=== PATIENT | female | born 1990 | race American Indian/Alaskan Native ===

== ENCOUNTER 2017-01-29 17:14 | Emergency (ER) | payer MEDICAID ==
[2016-12-15 14:15] VITALS: BMI 27.3
--- NOTE | 2017-01-29 19:56 | OBHP ---
Datetime: 01/29/2017 18:00 IP Adm Impression: , intrauterine ; No Active Labor; Intact Membranes IP Chief Complaint Other: RLQ pain IP Admit Plan: Observation/Evaluation; Discharge home Admit Comment, IP Provider: 26 yr at 22w5d GA presents to [facility] with complaint of RLQ pain, s harp, intermittent q10 min, which began this morning. Also with complaint of new onset pain on sole o f feet, sensitive to touch. + movements, denies ctx's/LOF/vaginal bleeding/headaches/visual marielos nges/n/v/swelling of hands or feet. Patient reports having a recent appendectomy at [facility] on 12/16/16. She goes for PNC at [facility], her last visit was 01/27/17 and she was instructed to take tylenol for the lo wer back pain which she reported then. Her last US 01/20/17: good tone and movements. Irma solis reports PMHx of Cervical Disc Herniation, Fibromyalgia and Anxiety. She stopped taking Gapapentin at 8 wks GA. Her next appointment with [facility] in friday02/04/17, her next clinic appt is on 02/24/17. Janice elliott is tolerating PO diet, had a normal bowel movement this AM, having normal urine output. care/course: Open Appendectomy at 16 wks GA (12/16/16); BV treated in 1st trimester, , rec urrent vaginal bleeding in first trimester, 2nd tri labs: Gc/Ch neg/neg, HepBsAg neg, HIV neg, Rh Pos , RPR neg, Rubella Immune OBHx: 1x at 36wks GA for PROM and failure to progress, 1x TOP PMHx: Cervical Disc Herniation, Fibromyalgia, Anxiety PSurgHx: Appendectomy (recent 12/16/16) SocHx: denies smoking/drugs/Etoh Allergies: NKDA Meds: PNV PE: VSS, DTR's 2+ throughout HEENT: normal Cardiac: S1 S2 normal, no murmurs/rubs or gallops. Lungs: CTABL Abd: gravid, nontender, RLQ surgical scar, Ext: no edema monitoring: FHR 120 bpm A: -discharge to home -[facility] appt tomorrow -follow up with Obgyn at [facility] in 1 week -adequate hydration and PO intake Samantha Townsend M.D PGY-1 The patient was seen and examined with resident I agree with the patient was observed for several hours symptoms improved patient was advised to follow-upat the [facility] in one week . Patient was advised she would have any vaginal bleeding or cramping she return L broken Medical Lisette ter Extremities - PN: Normal Abdomen - PN: Normal Back - PN: Normal Lungs - PN: Normal Heart - PN: Normal Neurologic - PN: Normal HEENT - PN: Normal General - PN: Normal FHR - Baseline A Provider: 120 Gestation - Est Wks by US: 22.5 EGA AdmitDate IP: 22.5 Vital Signs Provider: Reviewed; Within Normal Limits IP Chief Complaint: Maternal discomfort NICHD Decel Fetus A IP Provider: None DTRs - PN: Normal
== END 2017-01-29 19:35 | disposition home or self-care (01) ==
LOC: H.EROB2 17:14
DX: O47.02 False labor before 37 completed weeks of gestation, second trimester (principal); Z3A.22 22 weeks gestation of pregnancy; Z87.59 Personal history of other complications of pregnancy, childbirth and the puerperium; O20.9 Hemorrhage in early pregnancy, unspecified

== ENCOUNTER 2017-03-03 14:52 | Emergency (ER) | payer MEDICAID ==
[2017-03-03 16:03] VITALS: BMI 30.6
[2017-03-03 17:02] LABS: RBC URINE 4 /hpf (0-3); URINE BACTERIA OCC (<OCC); URINE BILIRUBIN NEGATIVE (NEGATIVE); URINE BLOOD MODERATE (NEGATIVE); URINE COLOR YELLOW (YELLOW); URINE GLUCOSE (UA) NEG (Normal); URINE KETONE NEGATIVE (NEGATIVE); URINE LEUKOCYTE ESTERASE LARGE Leu/uL (Negative); URINE PROTEIN NEGATIVE (NEGATIVE); URINE UROBILINOGEN 0.2-1.0 mg/dL (0.2-1.0); WBC URINE 11 /hpf (0-5)
--- NOTE | 2017-03-03 23:03 | OBHP ---
Datetime: 03/03/2017 15:50 IP Adm Impression: , intrauterine IP Admit Plan: Observation/Evaluation Admit Comment, IP Provider: 26yo edc 05/30 by 8wk us and lmp presents to [facility] w/ c/o increase d pelvic pressure assoc with crmps to the left of midline in pelvis and harper along coccyx. She denie s ctxs, vag bleeding, vag d/c, srom, coitus in past 4days or decreased fm. pmhx: fibromyalgia pshx: appy 12/06 obhx: EAB x1; CD nkda medic: pnv shx: denies etoh, drgs or tobacco I: 27.3wk pelvic pressure p: u/a addendum: I: uti/ vag candidiasis p: d/c home rx augmentin rx monistat ptl precaut f/u in 1wk w/ ob Pelvic Type - PN: Adequate Extremities - PN: Normal Abdomen - PN: Normal Back - PN: Normal Lungs - PN: Normal Heart - PN: Normal Neurologic - PN: Normal HEENT - PN: Normal General - PN: Normal FHR - Baseline A Provider: 150 Membranes, Provider: Intact Contraction Comments Provider: no Comments, ACOG Physical Exam: u/a +wbc,rbc, yeast, large LE, +bact SSE: yellow thick d/c EGA AdmitDate IP: 27.3 Vital Signs Provider: Within Normal Limits IP Chief Complaint: Maternal discomfort NICHD Variability Prov Fetus A: Marked >25bpm NICHD Accel Fetus A IP Provider: 10X10 FHR Category Provider Fetus A: Category I NICHD Decel Fetus A IP Provider: None Dilatation, Provider: 0 Effacement, Provider: 0 Station, Provider: -4 Genitourinary Exam: Normal
== END 2017-03-03 17:30 | disposition home or self-care (01) ==
LOC: H.EROB2 14:52
DX: O23.42 Unspecified infection of urinary tract in pregnancy, second trimester (principal); O26.92 Pregnancy related conditions, unspecified, second trimester; B37.3 Candidiasis of vulva and vagina; Z3A.27 27 weeks gestation of pregnancy

== ENCOUNTER 2017-03-30 23:00 | Emergency (ER) | payer MEDICAID ==
[2017-03-30 23:32] VITALS: BMI 30.9
[2017-03-30] MEDS ORDERED: Lactated Ringer's 1,000 ML IV SCH (23:45)
[2017-03-31 01:06] LABS: HEMATOCRIT 35.4 % (34.0-47.0); MEAN CELL VOLUME 93.4 fl (81.0-99.0); MEAN CORPUSCULAR HEMOGLOBIN 30.6 pg (27.0-31.0); MEAN CORPUSCULAR HGB CONC 32.7 g/dL (33.0-37.0); RED CELL DISTRIBUTION WIDTH 13.4 % (11.5-14.5)
[2017-03-31 01:12] LABS: RBC URINE 4 /hpf (0-3); URINE BACTERIA RARE (<OCC); URINE BILIRUBIN NEGATIVE (NEGATIVE); URINE BLOOD SMALL (NEGATIVE); URINE COLOR YELLOW (YELLOW); URINE GLUCOSE (UA) NEG (Normal); URINE KETONE NEGATIVE (NEGATIVE); URINE LEUKOCYTE ESTERASE NEG Leu/uL (Negative); URINE PROTEIN NEGATIVE (NEGATIVE); URINE UROBILINOGEN 0.2-1.0 mg/dL (0.2-1.0); WBC URINE 3 /hpf (0-5)
== END 2017-03-31 01:55 | disposition home or self-care (01) ==
LOC: H.EROB2 23:00
DX: O47.03 False labor before 37 completed weeks of gestation, third trimester (principal); Z3A.31 31 weeks gestation of pregnancy; Z86.69 Personal history of other diseases of the nervous system and sense organs

== ENCOUNTER 2017-04-16 10:12 | Inpatient (IN) | payer MEDICAID ==
[2017-04-16 10:43] VITALS: BMI 31.5
[2017-04-16] MEDS: Lactated Ringer's 1,000 ML IV SCH ×7 (11:15→17:36)
[2017-04-16 14:18] LABS: SQUAMOUS EPITHIAL 8 /hpf (0-5); URINE BACTERIA MOD (<OCC); URINE BILIRUBIN NEGATIVE (NEGATIVE); URINE BLOOD SMALL (NEGATIVE); URINE CLARITY CLOUDY (Clear); URINE COLOR YELLOW (YELLOW); URINE GLUCOSE (UA) NEG (Normal); URINE LEUKOCYTE ESTERASE SMALL Leu/uL (Negative); URINE NITRATE NEGATIVE (NEGATIVE); URINE PROTEIN NEGATIVE (NEGATIVE); URINE UROBILINOGEN 0.2-1.0 mg/dL (0.2-1.0)
[2017-04-16 14:26] LABS: ALB/GLOB RATIO 1.1 (1.0-2.1); ALBUMIN 3.6 g/dL (3.5-5.0); ALT/SGPT 24 U/L (9-52); AST/SGOT 27 U/L (14-36); BLOOD UREA NITROGEN 6 mg/dl (7-17); CALCIUM 9.1 mg/dL (8.4-10.2); GFR AFRICAN-AMERICAN > 60; GFR NON-AFRICAN AMERICAN > 60
[2017-04-16 14:32] LABS: BASO # 0.1 K/uL (0.0-0.2); BASO % 0.6 % (0.0-2.0); EOS # 0.3 K/uL (0.0-0.7); EOS % 2.8 % (0.0-4.0); HEMOGLOBIN 11.8 g/dL (12.0-16.0); LYMPH # 1.7 K/uL (1.0-4.3); LYMPH % 17.1 % (20.0-40.0); MEAN CELL VOLUME 93.5 fl (81.0-99.0); MEAN CORPUSCULAR HEMOGLOBIN 30.6 pg (27.0-31.0); MEAN CORPUSCULAR HGB CONC 32.7 g/dL (33.0-37.0); MEAN PLATELET VOLUME 9.1 fl (7.2-11.7); MONO % 10.6 % (0.0-10.0); NEUT # 6.8 K/uL (1.8-7.0); NEUT % 68.9 % (50.0-75.0); NRBC % 0.3 % (0.0-0.0); RBC 3.86 Mil/uL (3.80-5.20); RED CELL DISTRIBUTION WIDTH 13.1 % (11.5-14.5); WHITE BLOOD COUNT 9.9 K/uL (4.8-10.8)
[2017-04-16] MEDS ORDERED: Betamethasone Soluspan 30 mg/5mL Inj Susp IM ONE (17:08)
[2017-04-16] MEDS ORDERED: Magnesium Sul 40GM/1L SW 40 GM/1,000 ML ML IV ONE (17:09)
[2017-04-16 17:17] VITALS: BP 114/73; PULSE 110; RESP 14; TEMP 98
[2017-04-16] MEDS ORDERED: Magnesium Sulfate 4 gm/100 ml 4 GM/100 ML BAG IV ONE ×2 (17:29→17:34)
[2017-04-17] MEDS: Lactated Ringer's 1,000 ML IV SCH ×2 (05:47→18:50)
[2017-04-17] MEDS ORDERED: Magnesium Sul 40GM/1L SW 40 GM/1,000 ML ML IV ONE (10:18)
[2017-04-17] MEDS: Magnesium Sul 40GM/1L SW 40 GM/1,000 ML ML IV ONE (13:00)
[2017-04-17] MEDS ORDERED: Betamethasone Soluspan 30 mg/5mL Inj Susp IM ONE (18:00)
[2017-04-18] MEDS: Magnesium Sul 40GM/1L SW 40 GM/1,000 ML ML IV ONE (09:15)
[2017-04-18 14:37] LABS: SQUAMOUS EPITHIAL 2 /hpf (0-5); URINE AMORPHOUS SEDIMENT RARE /ul (<OCC); URINE BILIRUBIN NEGATIVE (NEGATIVE); URINE BLOOD SMALL (NEGATIVE); URINE CLARITY CLEAR (Clear); URINE COLOR STRAW (YELLOW); URINE GLUCOSE (UA) NEG (Normal); URINE LEUKOCYTE ESTERASE NEG Leu/uL (Negative); URINE NITRATE NEGATIVE (NEGATIVE); URINE PROTEIN NEGATIVE (NEGATIVE); URINE UROBILINOGEN 0.2-1.0 mg/dL (0.2-1.0)
[2017-04-18] MEDS: Lactated Ringer's 1,000 ML IV SCH (18:47)
--- NOTE | 2017-04-18 19:10 | OBPN ---
Datetime: 04/18/2017 05:41 IP Progress Impression: Normal progression of labor IP Progress Plan: Continue present management IP Progress Note Comment: S: patient lying in bed w/ comfortably. O: 98.2 F, 121/63 mmHg, 104 bpm, FHR 135, moderate variability SVE: membranes intact meds: 1st dose betamethasone @18:02 04/16, mag 4gm IV, tylenol 650 mg PO once A: IUP @ 33.6 wks w/ CTX and lower abdominal pain P: FHT reactive, no decels - continue w/ present management Ace Walters M.D. Stamping Die Maker Bench PGY-1 Vital Signs Provider: Reviewed Datetime: 04/16/2017 11:06 Membranes, Provider: Intact FHR - Baseline A Provider: 140s Presentation-Admit: Vertex NICHD Accel Fetus A IP Provider: 15X15 FHR Category Provider Fetus A: Category I NICHD Variability Prov Fetus A: Moderate 6-25bpm Dilatation, Provider: closed Effacement, Provider: thick Station, Provider: high NICHD Decel Fetus A IP Provider: None Datetime: 03/03/2017 15:50 Contraction Comments Provider: no Datetime: 01/29/2017 18:00 Gestation - Est Wks by US: 22.5
--- NOTE | 2017-04-18 19:32 | OBPN ---
Datetime: 04/18/2017 19:11 IP Progress Impression Other: contractions IP Informed Consent Obtain: Section Delivery; Risks, Benefits and Alternatives Discussed IP Procedures: Sterile Vag Exam IP Progress Plan: Deliver- Section Membranes, Provider: Intact Contraction Comments Provider: irritabilty FHR - Baseline A Provider: 140 IP Progress Note Comment: 26 yo at 34 wks w/ cramping pain in lower abdomen and back, s/p be tamethasone course, last dose at 6 pm last night Case discussed w/ Dr. Goodrich and it was recommended that the IV magnesium be stopped and to del iver her if she still has pain. Pt still w/ crampy pain. Will proceed w/ delivery NICHD Variability Prov Fetus A: Moderate 6-25bpm Dilatation, Provider: 0 Effacement, Provider: 0 Station, Provider: -3 NICHD Decel Fetus A IP Provider: None
[2017-04-19] MEDS: Lactated Ringer's 1,000 ML IV SCH (02:48)
--- NOTE | 2017-04-19 20:14 | US ---
PROCEDURE: HISTORY: threatened ptl COMPARISON: 12/16/2016 TECHNIQUE: FINDINGS: biophysical profile score is 8 out of 8. Cervical length is 2.7 centimeters. Estimated gestational age is 33 weeks +/-2 weeks. Amniotic fluid index is 17 centimeters. anatomic survey was not performed. Assessment is limited by late gestational age. IMPRESSION: As above.
--- NOTE | 2017-04-20 10:31 | OBPN ---
Datetime: 04/20/2017 10:13 IP Progress Impression Other: contractions IP Procedures: Sterile Vag Exam IP Progress Plan: Continue present management Membranes, Provider: Intact Contraction Comments Provider: irritability FHR - Baseline A Provider: 150 IP Progress Note Comment: 26 yo at 34+2 wks w/ PT ctxns, maternal discomfort Case discussed w/ Drs. Dejesus and [place] (geospatial program management officer) and it was decided to observe for now d/t risks of prematurity 04/19/2017 BPP 8/8, [place] 17, EGA 33 wks Cervix is unchanged. Pt is not in labor. Will continue to observe for now NICHD Accel Fetus A IP Provider: 15X15 FHR Category Provider Fetus A: Category I NICHD Variability Prov Fetus A: Moderate 6-25bpm Dilatation, Provider: 0 Effacement, Provider: 0 Station, Provider: -3 NICHD Decel Fetus A IP Provider: None Datetime: 04/19/2017 11:37 Presentation-Admit: Vertex Datetime: 04/19/2017 06:29 Vital Signs Provider: Reviewed
[2017-04-20 23:42] LABS: BASO # 0.1 K/uL (0.0-0.2); BASO % 0.8 % (0.0-2.0); EOS # 0.3 K/uL (0.0-0.7); EOS % 2.2 % (0.0-4.0); HEMOGLOBIN 10.2 g/dL (12.0-16.0); LYMPH % 15.9 % (20.0-40.0); MEAN CELL VOLUME 91.2 fl (81.0-99.0); MEAN CORPUSCULAR HEMOGLOBIN 30.5 pg (27.0-31.0); MEAN CORPUSCULAR HGB CONC 33.5 g/dL (33.0-37.0); MEAN PLATELET VOLUME 7.6 fl (7.2-11.7); MONO # 1.5 K/uL (0.0-0.8); NEUT # 8.9 K/uL (1.8-7.0); NEUT % 69.1 % (50.0-75.0); RBC 3.33 Mil/uL (3.80-5.20); RED CELL DISTRIBUTION WIDTH 12.9 % (11.5-14.5); WHITE BLOOD COUNT 12.8 K/uL (4.8-10.8)
[2017-04-20 23:53] LABS: ALB/GLOB RATIO 1.2 (1.0-2.1); ALBUMIN 3.3 g/dL (3.5-5.0); ALT/SGPT 26 U/L (9-52); AST/SGOT 14 U/L (14-36); BLOOD UREA NITROGEN 5 mg/dl (7-17); CALCIUM 8.8 mg/dL (8.4-10.2); GFR AFRICAN-AMERICAN > 60; GFR NON-AFRICAN AMERICAN > 60; URIC ACID 3.4 mg/Dl (2.2-7.5)
--- NOTE | 2017-04-21 17:07 | OBPN ---
Datetime: 04/21/2017 16:52 IP Progress Plan: Continue present management IP Progress Note Comment: Called by nurse to notify me that pt had variable decels. s: pt denies srom or vag bleeding. She states her pain is of the same intensity as it has been s rocío hr presentation to [facility]. o: fhr 160s moder variab, variabl decels resolved largest variabel lucia to 110 w/ 2min dura and spont resolution cl/th/high i: 34.3wks resolved decels p: current care.
[2017-04-21] MEDS ORDERED: Promethazine 25 MG in Sodium Chloride 0.9% 50 ML IVPB ONE (23:37)
--- NOTE | 2017-04-22 09:41 | OBPN ---
Datetime: 04/22/2017 08:30 IP Progress Impression: Reassuring heart rate; Reactive non-stress test IP Informed Consent Obtain: Risks, Benefits and Alternatives Discussed IP Progress Plan: Continue present management FHR - Baseline A Provider: 150 IP Progress Note Comment: Moira was admited Thurs for threatened PTL. She was given MgSO4 and wily roid x 2 doses. She was discontinued from the MgSO4 and observed afterwards. She was checked and note d to be closed again. Occasionally she feels pain but it's on and off. She took tylenol before but d oesn't want it becasue she doesn't think that it helps. She wants to have a C/S at 35w because she h ad previous delivery 7y ago with Dr Faye. Her child is fine. This morning, she feels the same. No more than yesterday - on and off. No SROM. No VB. +FM A: IUP at 35w C/S x 1 () threatened labor Hx depressiobn/anxiety S/P betamethasone x 2 PLAN: discussion with patient and her mother about medical condition. Recommended she goes home a nd rest. She wants to stay until delivrey (she is thinking C/S is elective at 35w). Risks/complicati ons related with prematurity discussed. Even though her first baby did fine, I explained that might n ot mecessarily be the case with this one. Will allow her to eat, ambulate and then transfer to OB floor NICHD Accel Fetus A IP Provider: 15X15 FHR Category Provider Fetus A: Category I NICHD Variability Prov Fetus A: Moderate 6-25bpm Datetime: 04/22/2017 00:12 Vital Signs Provider: Reviewed
--- NOTE | 2017-04-22 09:43 | OBPN ---
Datetime: 04/22/2017 09:20 IP Progress Note Comment: Notifiied that she wants to go home and rest instead of being transferred to floor/stay in L_D. She feels no different than yesterday whenshe was checked/declinced exam Reactive NST A: Threatened PTL PLAN: discharge home and have her follow up CF this week
--- NOTE | 2017-04-22 09:45 | OBDCSUM ---
Datetime: 04/22/2017 09:24 Discharged to, Provider: Home Follow up at, Provider: Dr Pablo Rosa Disch Instr Activity: Normal activity Disch Instr Diet: Regular Discharge Diagnosis, Provider: False Labor - Undelivered Discharge Time: 04/22/2017 09:35 Follow up in weeks, Provider: Tomorrow morning Disch Referrals: None Disch Activity Restrictions: No exercising; No lifting; No driving; Minimize walking; Minimize stair -climbing; No sexual activity; Nothing in vagina - Wagon Wheel, tampons, douche
== END 2017-04-22 09:30 | disposition home or self-care (01) | DRG 382 ==
LOC: H.EROB2 10:12 → H.L&D 16:56
PROVIDERS: ADMIT Obstetrics & Gynecology Gynecology; ATTEND Obstetrics & Gynecology Gynecology
PROC: 4A1HXCZ Monitoring of Products of Conception, Cardiac Rate, External Approach (ICD-10-PCS; principal; 2017-04-16)
DX: O47.03 False labor before 37 completed weeks of gestation, third trimester (principal); F41.8 Other specified anxiety disorders; O76 Abnormality in fetal heart rate and rhythm complicating labor and delivery; Z3A.35 35 weeks gestation of pregnancy; O99.343 Other mental disorders complicating pregnancy, third trimester

== ENCOUNTER 2017-04-23 11:01 | Emergency (ER) | payer MEDICAID ==
[2017-04-23] MEDS ORDERED: Lactated Ringer's 1,000 ML IV SCH ×2 (11:30→12:00)
[2017-04-23 14:07] LABS: HEMOGLOBIN 11.8 g/dL (12.0-16.0); MEAN CELL VOLUME 90.8 fl (81.0-99.0); MEAN CORPUSCULAR HEMOGLOBIN 30.2 pg (27.0-31.0); MEAN CORPUSCULAR HGB CONC 33.2 g/dL (33.0-37.0); RBC 3.91 Mil/uL (3.80-5.20); WHITE BLOOD COUNT 12.6 K/uL (4.8-10.8)
--- NOTE | 2017-04-23 14:58 | OBHP ---
Datetime: 04/23/2017 14:54 Admit Comment, IP Provider: Patient is at 34.5 wks, presents for evaluation due to pelvic pa in. Patient s/p admission for 5 days for contractions. Given steroids and magnesium and patie nt discharged yesterday. Patient states pain unchanged from time of discharge. Denies leakage of flui ds or vaginal bleeding. Cervix long and closed on exam x2 As Patient not in labor, patient to be discharged with follow up scheduled in office tomorrow at 2 pm. Patient informed if regular contractions, vaginal bleeding, leakage of fluids or increased pain to return to hospital. Patient verbalized understanding. FHR - Baseline A Provider: 150 Membranes, Provider: Intact IP Hx Assessment: The History has been Reviewed and is Current EGA AdmitDate IP: 34.5 Vital Signs Provider: Reviewed IP Chief Complaint: Uterine contractions NICHD Variability Prov Fetus A: Moderate 6-25bpm NICHD Accel Fetus A IP Provider: 15X15 Dilatation, Provider: 0 Effacement, Provider: 0 Station, Provider: -3 Datetime: 04/22/2017 08:30 Lungs - PN: Normal Heart - PN: Normal Neurologic - PN: Normal General - PN: Normal Presentation-Admit: Vertex FHR Category Provider Fetus A: Category I Datetime: 04/20/2017 10:13 Contraction Comments Provider: irritability NICHD Decel Fetus A IP Provider: None Datetime: 04/16/2017 11:06 IP Adm Impression: , intrauterine IP Admit Plan: Admit to unit Pelvic Type - PN: Adequate Extremities - PN: Normal Abdomen - PN: Normal Back - PN: Normal Breast - PN: Normal Thyroid - PN: Normal HEENT - PN: Normal Comments, ACOG Physical Exam: abd: +bs, soft, suprapubic tenderness, ND, no guarding rigidity. Pelvic: closed/thick/high bedside u/s: vertex Genitourinary Exam: Normal DTRs - PN: Normal
== END 2017-04-23 15:00 | disposition home or self-care (01) ==
LOC: H.EROB2 11:01 → H.EROB 11:02 → H.EROB2 15:00
DX: O47.03 False labor before 37 completed weeks of gestation, third trimester (principal); Z3A.34 34 weeks gestation of pregnancy

== ENCOUNTER 2017-04-26 22:44 | Emergency (ER) | payer MEDICAID ==
--- NOTE | 2017-04-27 00:01 | OBHP ---
Datetime: 04/26/2017 23:51 IP Adm Impression: , intrauterine ; No Active Labor; Intact Membranes IP Admit Plan: Observation/Evaluation Admit Comment, IP Provider: 26-year-old at 35 weeks and 1 day gestational age presents to [facility] ED complaining of pelvic discomfort and right abdominal discomfort. Patient reports discomfort cram py in nature. Patient denies feeling any contractions. Patient denies any vaginal bleeding or leakage of fluids. Patient reports good movement. Patient denies any fevers or chills, dysuria, hematuria, diarrhea or constipation, changes in appe tite, radiation of pain. Patient was admitted last week for abdominal pain. Patient status post tocolyse this with magnesiu m sulfate and status post full steroid course. Past medical history none Past surgical history appendectomy, 1 Medications none No known drug allergies Obstetrical history at 35 weeks Social history no tobacco, no drugs, no alcohol Physical exam: Refer to physical exam findings Assessment: 26-year-old at 35 weeks and 1 day gestational age with pelvic and right abdominal discomf ort. No evidence of labor at this time. Both maternal well-being and well-being reassur ing at this time. Plan: IV fluid hydration Patient offered pain medication, patient declined Check CBC, CMP, amylase, lipase, liver function tests, urinalysis, urine culture Continue observation on tocometer and continuous monitoring will reassess Extremities - PN: Normal Abdomen - PN: Normal Back - PN: Normal Lungs - PN: Normal Heart - PN: Normal Neurologic - PN: Normal HEENT - PN: Normal General - PN: Normal FHR - Baseline A Provider: 130s-140s Membranes, Provider: Intact Contraction Comments Provider: occasional Comments, ACOG Physical Exam: Cervix: Long, closed, posterior, No blood, no fluid, no discharge Abdomen: Gravid, soft, nondistended, mild tenderness on the right No rebound, no guarding, no CVA tenderness bilaterally Pool Provider: Negative EGA AdmitDate IP: 35.1 Vital Signs Provider: Reviewed; Within Normal Limits IP Chief Complaint: Maternal discomfort NICHD Variability Prov Fetus A: Moderate 6-25bpm NICHD Accel Fetus A IP Provider: 15X15 FHR Category Provider Fetus A: Category I NICHD Decel Fetus A IP Provider: None Dilatation, Provider: 0 Effacement, Provider: 0 Station, Provider: -4 Genitourinary Exam: Normal Datetime: 04/23/2017 14:54 Pelvic Type - PN: Adequate
[2017-04-27] MEDS ORDERED: Lactated Ringer's 1,000 ML IV SCH (00:15)
[2017-04-27 00:37] LABS: BASO % 0.2 % (0.0-2.0); EOS # 0.2 K/uL (0.0-0.7); EOS % 1.8 % (0.0-4.0); HEMOGLOBIN 10.9 g/dL (12.0-16.0); LYMPH # 2.6 K/uL (1.0-4.3); LYMPH % 21.2 % (20.0-40.0); MEAN CELL VOLUME 90.8 fl (81.0-99.0); MEAN CORPUSCULAR HEMOGLOBIN 30.6 pg (27.0-31.0); MEAN CORPUSCULAR HGB CONC 33.7 g/dL (33.0-37.0); MEAN PLATELET VOLUME 7.7 fl (7.2-11.7); MONO # 1.3 K/uL (0.0-0.8); MONO % 10.9 % (0.0-10.0); NEUT # 8.1 K/uL (1.8-7.0); NEUT % 65.9 % (50.0-75.0); NRBC % 0.1 % (0.0-0.0); RBC 3.55 Mil/uL (3.80-5.20); RED CELL DISTRIBUTION WIDTH 12.9 % (11.5-14.5); WHITE BLOOD COUNT 12.2 K/uL (4.8-10.8)
[2017-04-27 00:46] LABS: ALB/GLOB RATIO 1.2 (1.0-2.1); ALBUMIN 3.4 g/dL (3.5-5.0); ALT/SGPT 14 U/L (9-52); AMYLASE 112 U/L (30-110); AST/SGOT 16 U/L (14-36); BLOOD UREA NITROGEN 6 mg/dl (7-17); CALCIUM 9.2 mg/dL (8.4-10.2); GFR AFRICAN-AMERICAN > 60; GFR NON-AFRICAN AMERICAN > 60; LIPASE 249 U/L (23-300); URIC ACID 4.6 mg/Dl (2.2-7.5)
[2017-04-27 00:52] LABS: SQUAMOUS EPITHIAL 2 /hpf (0-5); URINE BILIRUBIN NEGATIVE (NEGATIVE); URINE BLOOD SMALL (NEGATIVE); URINE CLARITY CLEAR (Clear); URINE COLOR STRAW (YELLOW); URINE GLUCOSE (UA) NEG (Normal); URINE LEUKOCYTE ESTERASE TRACE Leu/uL (Negative); URINE NITRATE NEGATIVE (NEGATIVE); URINE PROTEIN NEGATIVE (NEGATIVE); URINE UROBILINOGEN 0.2-1.0 mg/dL (0.2-1.0)
[2017-04-27 10:05] LABS: ALT/SGPT 15 U/L (9-52); AST/SGOT 14 U/L (14-36)
[2017-04-27 13:16] LABS: ALBUMIN 3.3 g/dL (3.5-5.0); ALT/SGPT 24 U/L (9-52); AMYLASE 101 U/L (30-110); AST/SGOT 13 U/L (14-36); BLOOD UREA NITROGEN 4 mg/dl (7-17); CALCIUM 9.1 mg/dL (8.4-10.2); GFR AFRICAN-AMERICAN > 60; GFR NON-AFRICAN AMERICAN > 60; LIPASE 187 U/L (23-300)
[2017-04-27 13:19] LABS: ALB/GLOB RATIO 1.2 (1.0-2.1)
[2017-04-27 13:24] LABS: BASO % 0.1 % (0.0-2.0); EOS # 0.1 K/uL (0.0-0.7); EOS % 1.4 % (0.0-4.0); HEMOGLOBIN 10.6 g/dL (12.0-16.0); LYMPH # 1.7 K/uL (1.0-4.3); LYMPH % 17.8 % (20.0-40.0); MEAN CELL VOLUME 90.2 fl (81.0-99.0); MEAN CORPUSCULAR HEMOGLOBIN 30.6 pg (27.0-31.0); MEAN CORPUSCULAR HGB CONC 33.9 g/dL (33.0-37.0); MEAN PLATELET VOLUME 7.7 fl (7.2-11.7); MONO % 10.7 % (0.0-10.0); NEUT # 6.8 K/uL (1.8-7.0); NRBC % 0.1 % (0.0-0.0); RBC 3.47 Mil/uL (3.80-5.20); RED CELL DISTRIBUTION WIDTH 12.9 % (11.5-14.5); WHITE BLOOD COUNT 9.7 K/uL (4.8-10.8)
--- NOTE | 2017-04-27 15:27 | US ---
HISTORY: rlq abd pain, hx of appendectomy COMPARISON: Comparison made with abdominal ultrasound 12/15/2016 TECHNIQUE: Sonographic evaluation of the abdomen. FINDINGS: LIVER: Measures approximately 17 cm. Liver demonstrates smooth contour and normal echogenicity of the liver parenchyma. No mass. No intrahepatic bile duct dilatation. GALLBLADDER: Gallbladder is physiologically distended. No evidence of intraluminal gallbladder calculi. COMMON BILE DUCT: Measures approximately 4 mm. No stones. No dilatation. PANCREAS: Evaluation of the pancreas is limited due to body habitus and bowel gas. RIGHT KIDNEY: Measures approximately 12.4 x 4.6 x 7 cm.Cm. Normal echogenicity. No calculus, mass, or hydronephrosis. LEFT KIDNEY: Measures approximately 13.5 x 6.1 x 6.5 thecm. Normal echogenicity. No calculus, mass, or hydronephrosis. SPLEEN: Normal in size measuring approximately 11.9 cm. No obvious mass or collection. . AORTA: No aneurysmal dilatation. IVC: Unremarkable. OTHER FINDINGS: None. IMPRESSION: Unremarkable abdominal ultrasound.
--- NOTE | 2017-05-13 07:36 | OBPN ---
Datetime: 04/27/2017 19:05 IP Progress Note Comment: Patient observed at the OB ED. Patient without any evidence of lab or at this time. heart tracing is remained reassuring and tocometer reveals no contraction elmer martha. Patient reports feeling better than at presentation. Repeat labs done this morning with no objec tive findings. Abdominal ultrasound done within normal limits. I discussed plan with patient and all patient questions answered. Plan to discharge patient home with labor precautions. Patient has follow-up already sched uled with clinic this week. Both maternal well-being and well-being reassuring at this time. Datetime: 04/27/2017 08:09 IP Progress Impression: Reassuring heart rate IP Progress Plan: Discharge FHR - Baseline A Provider: 150s Vital Signs Provider: Reviewed Vital Signs Provider Details: HR: 90s-110s NICHD Variability Prov Fetus A: Moderate 6-25bpm NICHD Decel Fetus A IP Provider: None Datetime: 04/26/2017 23:51 Pool Provider: Negative Membranes, Provider: Intact Contraction Comments Provider: occasional NICHD Accel Fetus A IP Provider: 15X15 FHR Category Provider Fetus A: Category I Dilatation, Provider: 0 Effacement, Provider: 0 Station, Provider: -4 Datetime: 04/22/2017 08:30 Presentation-Admit: Vertex
== END 2017-04-27 16:26 | disposition home or self-care (01) ==
LOC: H.EROB2 22:44 → H.L&D 04-27 01:30 → UNDOADMOB 04-27 01:30 → UNDODISOB 04-27 16:25 → H.EROB2 04-27 16:26
DX: O26.893 Other specified pregnancy related conditions, third trimester (principal); R10.2 Pelvic and perineal pain; Z3A.35 35 weeks gestation of pregnancy

== ENCOUNTER 2017-05-13 07:34 | Inpatient (IN) | payer MEDICAID ==
[2017-05-13 07:52] VITALS: BMI 32.1
[2017-05-13] MEDS ORDERED: Lactated Ringer's 1,000 ML IV SCH (08:08)
[2017-05-13] MEDS ORDERED: Oxytocin 20 units in LR 2,000 ML IV ONE (08:08)
[2017-05-13] MEDS ORDERED: ceFAZolin 2 GM in Sodium Chloride 0.9% 100 ML IVPB ONE (08:08)
[2017-05-13] MEDS ORDERED: Oxytocin 30 units/LR 500ML 30 U/500 ML BAG IV ONE ×2 (08:08→10:15)
[2017-05-13] MEDS ORDERED: Sodium Chloride 0.9% 1,000 ML IV SCH (08:15)
[2017-05-13 08:54] VITALS: BP 118/81; PULSE 97; RESP 20; O2SAT 99
[2017-05-13] MEDS ORDERED: Morphine 5 mg/10 ml preservative-free Inj(Duramorph) ONE (10:37)
[2017-05-13] MEDS ORDERED: ePHEDrine 50 mg/ml Inj ONE (10:53)
[2017-05-13] MEDS ORDERED: Naloxone 0.4 mg/ml Inj (Adult) IVP PRN (11:36)
[2017-05-13] MEDS ORDERED: DiphenhydrAMINE 50 mg/ml Inj IVP PRN (11:36)
[2017-05-13] MEDS ORDERED: Oxycodone/Acetaminophen 5/325 mg Tab PO PRN (12:09)
--- NOTE | 2017-05-13 13:13 | OBADHP ---
Datetime: 05/13/2017 08:27 Admit Comment, IP Provider: 26-year-old at 37 weeks and 4 days gestational age, CONNIE 7 by LMP 08/23/17 presents to OB ED for evaluation due to persistant abdominal pain, pervious section and possible early labor. Fetus also know to have a BPD and HC lag of 2 weeks. Pt reports +f m. denies vaginal bledding, LOF or contraction. denies headache, dizziness, blurry vision, nausea, vo miting, fever, chills, chest pain, dyspnea or leg pain. past ob hx: etop x1, in 2009 at 36 weeks. past shelter monitor: none past medical hx: Fibromyalgia social hx: denies smoking, drinking alcohol or recreational drug use. past sx hx: appendectomy in 11/2016. medications: PNV allergies: NKDA Assessment: 26-year-old at 37 weeks and 4 day gestational age presents to OB ED for repea t . plan: admit to unit Plan of care reviewed with MFM. Due to persistant abdominal pain, term and BPD/HC lag of 2 weeks, decision made to proceed with repeat csection at this time All risks, benefits and alternatives reviewed with patient and patient verbalized understanding an d consent was signed Continue heart monitor initiate scheduled protocol Ancef 2gm preop Patient received Steroids for lung maturity 3 weeks ago NPO cbc type and screen IVF bolus Sylvester Washington, PGY1/Dr. Lopez Extremities - PN: Normal Abdomen - PN: Normal Back - PN: Normal Lungs - PN: Normal Heart - PN: Normal Neurologic - PN: Normal HEENT - PN: Normal General - PN: Normal FHR - Baseline A Provider: 145 IP Hx Assessment: The History has been Reviewed and is Current Vital Signs Provider: Reviewed IP Chief Complaint: Maternal discomfort NICHD Variability Prov Fetus A: Moderate 6-25bpm NICHD Accel Fetus A IP Provider: 15X15 FHR Category Provider Fetus A: Category I NICHD Decel Fetus A IP Provider: None Genitourinary Exam: Normal DTRs - PN: Normal EGA AdmitDate IP: 37.4 IP Adm Impression: Term, intrauterine IP Admit Plan: Admit to unit; Initiate Section protocol Datetime: 04/27/2017 08:09 Vital Signs Provider Details: HR: 90s-110s Datetime: 04/26/2017 23:51 Membranes, Provider: Intact Contraction Comments Provider: occasional Comments, ACOG Physical Exam: Cervix: Long, closed, posterior, No blood, no fluid, no discharge Abdomen: Gravid, soft, nondistended, mild tenderness on the right No rebound, no guarding, no CVA tenderness bilaterally Pool Provider: Negative Dilatation, Provider: 0 Effacement, Provider: 0 Station, Provider: -4 Datetime: 04/23/2017 14:54 Pelvic Type - PN: Adequate Datetime: 04/22/2017 08:30 Presentation-Admit: Vertex Datetime: 04/16/2017 11:06 Breast - PN: Normal Thyroid - PN: Normal Datetime: 01/29/2017 18:00 IP Chief Complaint Other: RLQ pain Gestation - Est Wks by US: 22.5
--- NOTE | 2017-05-13 13:15 | OBDS ---
DELIVERY PERSONNEL Delivery Doctor: Serg Lopez MD Scrub Nurse: Elizabeth Rubalcava Anesthesiologist: Fidencio burnham MD Resident: MD anish MATERNAL INFORMATION Delivery Anesthesia: Spinal Medications in Delivery: Pitocin Estimated Blood Loss (ml): 800 Placenta Cultured: No Maternal Complications: None RN Comments: Atraumatic repeat of a viable baby girl with Lusty cry. Infant transitioned well and was cared for by Dr. Ayala. Patient tolerated delivery well. and mother are recov erying well. LABOR SUMMARY EDC: 05/30/2017 00:00 No. Babies in Womb: 1 Attempted: No Labor Anesthesia: None LABOR INFORMATION Reason for Induction: Not Applicable Oxytocin: N/A Group B Beta Strep: Not Done Antibiotics # of Doses: 1 Antibiotics Time of Last Dose: 10:20 Steroids Given: Full Course; > 24 Hours before Delivery Reason Steroids Not Administered: Other Other Reason Not Administered: not required MEMBRANES Membranes Rupture Method: Artificial Rupture of Membranes: 05/13/2017 11:10 Length of Rupture (hrs): -167.98 Amniotic Fluid Color: Clear Amniotic Fluid Amount: Small Amniotic Fluid Odor: Normal STAGES OF LABOR Stage 3 hrs: 168 Stage 3 min: 1 CSECTION DELIVERY Primary Indication: Repeat Elective Secondary Indication: N/A CSection Urgency: Elective CSection Incidence: Repeat CSection Incision: Lower Uterine Transverse BABY A INFORMATION Delivery Date/Time: 05/06/2017 11:11 Method of Delivery: Born in Route : No : N/A Forceps: N/A Vacuum Extraction: N/A Shoulder Dystocia : No SHOULDER DYSTOCIA BABY A Infant Delivery Date/Time: 05/06/2017 11:11 PRESENTATION/POSITION BABY A Presentation: Cephalic Cephalic Presentation: Vertex Vertex Position: Left Occipital Anterior Breech Presentation: N/A PLACENTA INFORMATION BABY A Placenta Delivery Time : 05/13/2017 11:12 Placenta Method of Delivery: Spontaneous Placenta Status: Delivered SCORES BABY A Heart Rate 1 min: >100 bpm Resp Effort 1 min: Good Cry Reflex Irritability 1 min: Cough or Sneeze or Pulls Away Muscle Tone 1 min: Active Motion Color 1 min: Body Nibley, Extremities Blue Resuscitation Effort 1 min: N/A SCORE 1 MIN: 9 Heart Rate 5 min: >100 bpm Resp Effort 5 min: Good Cry Reflex Irritability 5 min: Cough or Sneeze or Pulls Away Muscle Tone 5 min: Active Motion Color 5 min: Body [place]y, Extremities Blue Resuscitation Effort 5 min: N/A SCORE 5 MIN: 9 INFANT INFORMATION BABY A Gestational Age at Delivery: 37.0 Gestational Status: Term Outcome : Liveborn Condition : Stable Sex: Female IDENTIFICATION/MEDS BABY A ID Band Number: [id number] ID Band Location: Right Leg; Right Arm WEIGHT/LENGTH BABY A Infant Birthweight (gms): 2830 Weight (lb): 6 Weight (oz): 4 CORD INFORMATION BABY A No. Cord Vessels: 3 Nuchal Cord : N/A Cord Blood Taken: No Suction: Mouth; Nose ASSESSMENT BABY A Infant Complications: None Physical Findings at Delivery: Within Normal Limits Respirations: Appears Normal Duck Operator/ALS Called : No Care By: Dr Odell Transferred To: [facility]
[2017-05-14] MEDS ORDERED: DiphenhydrAMINE 50 mg/ml Inj ONE (01:00)
[2017-05-14 07:00] LABS: HEMATOCRIT 32.7 % (34.0-47.0); MEAN CELL VOLUME 88.8 fl (81.0-99.0); MEAN CORPUSCULAR HEMOGLOBIN 30.3 pg (27.0-31.0); MEAN CORPUSCULAR HGB CONC 34.1 g/dL (33.0-37.0); RED CELL DISTRIBUTION WIDTH 13.1 % (11.5-14.5); WHITE BLOOD COUNT 11.7 K/uL (4.8-10.8)
[2017-05-14] MEDS: Oxycodone/Acetaminophen 5/325 mg Tab PO PRN (14:36)
--- NOTE | 2017-05-14 15:14 | OP ---
PROCEDURE DATE: 05/13/2017 PREOPERATIVE DIAGNOSES: Term at 37 weeks and 4 days with persistent abdominal pain, early labor. POSTOPERATIVE DIAGNOSES: Term at 37 weeks and 4 days with persistent abdominal pain, early labor. Delivered. PROCEDURE: Repeat low-transverse section. SURGEON: Chaparro Lopez MD ESTHETICIAN AND MANAGER MEDICAL SPA: Chilo Faye MD ESTIMATED BLOOD LOSS: 800 mL. URINE OUTPUT: 200 mL, clear after procedure. INTRAVENOUS FLUID: 1500 mL lactated Ringer. PATHOLOGY: Placenta. CLOSURE: Subcuticular. FINDING: A live female with Apgars of 9 and 9, weighed 6 pounds 4 ounces. Delivered at 11:11 a.m. in vertex presentation, amniotic fluid clear. Nuchal cord x3, easily reduced. INDICATION: Patient is fullterm at 37.4 wks with a history of one prior csection , fibromyalgia and persistent abdominal pain. Management reviewed with MFM and due findings, recommendation made for delivery. Patient declined TOLAC, desired repeat section. Risks, benefits and alternatives to repeat section at 37.4 wks reviewed with patient and all questions answered. Consent obtained. PROCEDURE: The patient was taken to the operating room and given spinal anesthesia without difficulty. She was then prepped and draped in a normal sterile fashion in a dorsal supine position with a leftward tilt. A Pfannenstiel skin incision was then performed with a scalpel while removing the previously keloided scar. This incision was then carried through to the underlying fascia with the Bovie and the fascia was incised with Bovie and extended laterally using the Bovie. The inferior aspect of the fascial incision was grasped with Felice clamps, elevated, and the underlying rectus muscles were dissected off with the Bovie then bluntly. Attention was turned to superior aspect of the fascial incision which in similar fashion was dissected off with the Bovie then bluntly. The rectus muscles were meticulously in the midline. The peritoneum was then identified and entered bluntly. This incision was extended laterally, superiorly, and inferiorly with the Metzenbaum scissors, paying close attention to the bladder. The bladder blade was inserted, the vesicouterine peritoneum was identified, tented up, entered with Metzenbaum scissors, and this incision was extended laterally. A bladder flap was created digitally. The bladder blade was then re-inserted and the lower uterine segment was incised in a transverse fashion with the scalpel. This incision was extended cephalocaudal, bluntly and the infant was then delivered atraumatically after reduction of a nuchal cord x3. The cord was doubly clamped and cut and the was handed to the awaiting test facility engineer. Cord blood was then taken. The uterus was exteriorized and cleared off all clots and debris. The uterine incision was then closed with 1-0 Vicryl in a running locked fashion, and a second layer was then placed for imbrication. Good hemostasis was noted. Copious irrigation was performed and the uterus was returned to the abdomen. The peritoneum and rectus muscle were then reapproximated using 2-0 Vicryl in a running fashion. Good hematosis was again noted. The Bovie was used to obtain hemostasis on the subcutaneous fat layer. The skin was then closed with 3-0 Vicryl on a Navjot needle for subcuticular stitch and the incision was covered with Steri-Strips and a sterile dressing. The patient tolerated the procedure well. Sponge, lap and needle counts were correct x4. Ancef 2 g were given preoperatively. The patient was then taken to the recovery room in stable condition. There was no injury to the bladder, bowel, ureter, or the baby. Due to the nature of the case, an trust administrative assistant was requested. My trust administrative assistant Dr. Chilo Faye was present for the entire case from the initial incision to the patient's transfer to the recovery room. He assisted in providing exposure to ensure good hemostasis with delivery of the baby and with entry and closure of the abdominal wall fascia and uterus. The procedure could not have been performed without his assistance. Chaparro Lopez MD TOM
[2017-05-15] MEDS: Oxycodone/Acetaminophen 5/325 mg Tab PO PRN ×4 (05:22→20:45)
[2017-05-16] MEDS: Oxycodone/Acetaminophen 5/325 mg Tab PO PRN (05:44)
--- NOTE | 2017-05-16 11:28 | OBPPN ---
Datetime: 05/16/2017 05:37 PP Pain Prov: Within normal limits PP Nausea Prov: Denies PP Flatus Prov: Yes PP BM Prov: Yes PP Breasts Prov: Normal PP Heart Prov: Normal PP Lungs Prov: Normal PP Abdomen/Uterus Prov: Normal PP Lochia Prov: Normal PP CVA Tenderness Prov: Normal PP Extremities Prov: Normal PP C/S Incision Prov: Normal PP Progress Prov: Not Applicable PP Impression Prov: Normal progression PP Plan Prov: Discharge PP Progress Note Prov: This is a 26 y/o now who had a scheduled repeat C/S at full-term on 05/13/17 with no complications. Pt evaluated at bedside and reports feeling well. Pt tolerating PO, b ottle feeding baby, lochia less perri menses, passing gasses and had a bowel movement yesterday. Pain i s well-controlled with meds. Pt ambulating with no difficulties. Pt denies H/A, CP. SOB, abdominal di stension or dysuria. PE: Gen: A_O, resting comfortable on bed, NAD. Lungs: CTAB, No W/R/R. CV: RRR, S1 and S2 present. ABD: BS +, firm fundus below umbilicus, incision is clean, dry and intact with no erythema, indura trion or edema. EXT: non-tender calves. A_P: 26 y/o F POD 3, S/P . pt feeling well. Pt stable will be discharged home today. Tristen Nelson PGY-1. The patient was seen with the resident I agree with the note. The patient is cleared for dscharge IP PP Procedures: None Vital Signs Provider PP: Reviewed; Within Normal Limits
--- NOTE | 2017-05-16 11:28 | OBDCSUM ---
Datetime: 05/16/2017 05:38 Discharged to, Provider: Home Follow up at, Provider: [facility] Disch Instr Activity: Normal activity Disch Instr Diet: Regular Discharge Instructions, Provider: Routine instructions given Discharge Diagnosis, Provider: Term Delivered Discharge Time: 05/16/2017 12:00 Follow up in weeks, Provider: 1 week Disch Referrals: None Contraception discussed, Prov: No Disch Activity Restrictions: No exercising; No lifting; No sexual activity; Nothing in vagina - Inte rcourse, tampons, douche Discharge Comment, Provider: -Continue PNV 1 tab PO OD -Ibuprofen 600 mg PO 1 tab Q6h prn for moderate pain. -Percocet 5/325 mg PO 1 tab Q6h prn for severe pain. -Ambulate with caution, vaginal rest, no heavy lifting, avoid stairs, if excessive bleeding or fev er despite Tylenol, go to ER. -F/U with clinic in 1 week. The patient was seen with the resident I agree with the note. The patient is cleared for dscharge
== END 2017-05-16 13:15 | disposition home or self-care (01) | DRG 371 ==
LOC: H.EROB2 07:34 → H.L&D 07:53 → H.OB/GYN 16:10
PROVIDERS: ADMIT Obstetrics & Gynecology; ATTEND Obstetrics & Gynecology
PROC: 10D00Z1 Extraction of Products of Conception, Low, Open Approach (ICD-10-PCS; principal; 2017-05-13)
PROC: 4A1HXCZ Monitoring of Products of Conception, Cardiac Rate, External Approach (ICD-10-PCS; 2017-05-13)
DX: O34.211 Maternal care for low transverse scar from previous cesarean delivery (principal); N85.8 Other specified noninflammatory disorders of uterus; Z37.0 Single live birth; Z3A.37 37 weeks gestation of pregnancy; Z90.49 Acquired absence of other specified parts of digestive tract

== ENCOUNTER 2017-11-03 01:13 | Emergency (ER) | payer SELFPAY ==
[2017-11-03 01:13] VITALS: BMI 32.1
[2017-11-03 01:29] VITALS: BP 140/90; PULSE 94; RESP 16; TEMP 99.2; O2SAT 100
--- NOTE | 2017-11-03 02:30 | ED PDOC ---
HPI: CCC, URI, Sore Throat Time Seen by Provider: 11/03/17 01:34 Chief Complaint (Nursing): ENT Problem Chief Complaint (Provider): ENT Problem History Per: Patient History/Exam Limitations: no limitations Onset/Duration Of Symptoms: Days (x1 week) Current Symptoms Are (Timing): Still Present Additional Complaint(s): 27 year old female who presents to the emergency department with a complaint of sore throat associated with bilateral ear pain, nasal congestion, fever and bodyaches ongoing for 1 week. Denied any shortness of breath, nausea, vomiting, chest pain or recent travel. Patient stated she took Tamiflu earlier today and did not receive her flu vaccination this year. PMD: none provided Past Medical History Reviewed: Historical Data, Nursing Documentation, Vital Signs Vital Signs: Last Vital Signs Temp 99.2 F 11/03/17 01:27 Pulse 94 H 11/03/17 01:27 Resp 16 11/03/17 01:27 BP 140/90 11/03/17 01:27 Pulse Ox 100 11/03/17 03:23 - Medical History PMH: Anxiety, Fibromyalgia, Fractures (finger) Denies: HIV, Chronic Kidney Disease - Surgical History Surgical History: (x1) Denies: No Surg Hx - Family History Family History: States: Unknown Family Hx - Social History Current smoker - smoking cessation education provided: No Alcohol: None Drugs: Denies - Home Medications Home Medications: Ambulatory Orders Medication Instructions Recorded Vit No.126/Iron/Folic 1 tab PO DAILY MDD 1 04/16/17 [Classic Tablet] Ibuprofen [Motrin Tab] 600 mg PO Q6H PRN #30 tab 05/16/17 Sennosides A and B [Senokot Tab] 17.2 mg PO HS #30 tab 05/16/17 oxyCODONE/Acetaminophen [Percocet 1 tab PO Q6H PRN #20 tab 05/16/17 5/325 mg Tab] Guaifenesin 400 mg PO QID #20 tablet 11/03/17 Ibuprofen [Motrin Tab] 600 mg PO QID PRN #20 tab 11/03/17 - Allergies Allergies/Adverse Reactions: Allergies Allergy/AdvReac Type Severity Reaction Status Date / Time No Known Allergies Allergy Verified 04/16/17 17:14 Review of Systems ROS Statement: Except As Marked, All Systems Reviewed And Found Negative Constitutional: Positive for: Fever, Other (generalized bodyache) ENT: Positive for: Ear Pain (bilateral), Nose Congestion, Throat Pain Cardiovascular: Negative for: Chest Pain Respiratory: Negative for: Shortness of Breath Gastrointestinal: Negative for: Nausea, Vomiting Physical Exam - Reviewed Nursing Documentation Reviewed: Yes Vital Signs Reviewed: Yes - Physical Exam Appears: Positive for: Well, Non-toxic, No Acute Distress Head Exam: Positive for: ATRAUMATIC, NORMAL INSPECTION, NORMOCEPHALIC Skin: Positive for: Normal Color Eye Exam: Positive for: Normal appearance ENT: Positive for: Pharyngeal Erythema. Negative for: Normal ENT Inspection, Tonsillar Exudate Cardiovascular/Chest: Positive for: Regular Rate, Rhythm, Chest Non Tender Respiratory: Positive for: Normal Breath Sounds. Negative for: Decreased Breath Sounds, Wheezing, Respiratory Distress Gastrointestinal/Abdominal: Positive for: Normal Exam, Soft. Negative for: Tenderness Neurologic/Psych: Positive for: Alert (x3), Oriented - ECG O2 Sat by Pulse Oximetry: 100 (RA) Pulse Ox Interpretation: Normal Medical Decision Making Medical Decision Making: Initial Impression: URI Initial Plan: * CXR * Urine * Influenza A B * Rapid strep CXR : NAD, as read by ISAIAS Urine (-) Influenza A B (-) Rapid strep (-) On re-evaluation, patient is laying in bed in no acute distress, breathing easy and unlabored. On exam, patient remains AAOx3, neck is supple, lungs clear to auscultation, cardiac RRR. Diagnostic results d/w the patient in great detail. Diagnosis of viral illness d /w the patient. Based on history, exam and diagnostic results, plan will be for outpatient follow up. Patient instructed to follow-up with pmd or the clinic in 1-2 days without fail. Advised to take medication as prescribed. Return to the emergency room at any time for any new or worsening symptoms. Patient states she fully agrees with and understands discharge instructions. States that she agrees with the plan and disposition. Verbalized and repeated discharge instructions and plan. I have given the patient opportunity to ask any additional questions. Scribe Attestation: Documented by Ella Brian, acting as a scribe for Shahla Walsh PA-C. Provider Scribe Attestation: All medical record entries made by the Scribe were at my direction and personally dictated by me. I have reviewed the chart and agree that the record accurately reflects my personal performance of the history, physical exam, medical decision making, and the department course for this patient. I have also personally directed, reviewed, and agree with the discharge instructions and disposition. Disposition - Clinical Impression Clinical Impression: Viral illness - Patient ED Disposition Is Patient to be Admitted: No Counseled Patient/Family Regarding: Studies Performed, Diagnosis, Need For Followup, Rx Given - Disposition Referrals: [facility] [Outside] Disposition: Routine/Home Disposition Time: 03:10 Condition: STABLE Additional Instructions: Thank you for letting us take care of you today. You were treated for viral illness. The emergency medical care you received today was directed at your acute symptoms. If you were prescribed any medication, please fill it and take as directed. It may take several days for your symptoms to resolve. Return to the Emergency Department if your symptoms worsen, do not improve, or if you have any other problems. Please contact your doctor in 2 days for re-evaluation and follow up. Bring any paperwork you were given at discharge with you along with any medications you are taking to your follow up visit. Our treatment cannot replace ongoing medical care by a primary care provider (PCP) outside of the emergency department. Thank you for allowing the [facility] team to be part of your care today. Prescriptions: Guaifenesin 400 mg PO QID #20 tablet Ibuprofen [Motrin Tab] 600 mg PO QID PRN #20 tab PRN Reason: Cough Instructions: Viral Syndrome (ED) Forms: [employer] (Scottish), [facility] ED School/Work Excuse Print Language: KINYARWANDA - PA / COLLATERAL SPECIALIST / Resident Statement MD/DO has reviewed & agrees with the documentation as recorded.
--- NOTE | 2017-11-03 11:20 | RAD ---
HISTORY: cough COMPARISON: Chest radiographs 08/04/2016. TECHNIQUE: Chest PA and lateral FINDINGS: LUNGS: No active pulmonary disease. PLEURA: No significant pleural effusion identified. No pneumothorax apparent. CARDIOVASCULAR: Normal. OSSEOUS STRUCTURES: No significant abnormalities. VISUALIZED UPPER ABDOMEN: Normal. OTHER FINDINGS: None. IMPRESSION: No interval acute cardiopulmonary disease appreciated.
== END 2017-11-03 03:32 | disposition home or self-care (01) ==
LOC: H.ER 01:13
DX: B34.9 Viral infection, unspecified (principal); F41.9 Anxiety disorder, unspecified; M79.7 Fibromyalgia

== ENCOUNTER 2017-12-21 17:27 | Emergency (ER) | payer MEDICAID ==
[2017-12-21 17:33] VITALS: BP 139/90; PULSE 106; RESP 19; TEMP 98.8; O2SAT 96; BMI 30.6
--- NOTE | 2017-12-21 17:54 | ED PDOC ---
Lower Extremity Pain/Injury Time Seen by Provider: 12/21/17 17:35 Chief Complaint (Nursing): Lower Extremity Problem/Injury Chief Complaint (Provider): Left ankle pain History Per: Patient History/Exam Limitations: no limitations Onset/Duration Of Symptoms: Mins Current Symptoms Are (Timing): Still Present Additional History Per: Patient Additional Complaint(s): 27yo female, presents to ER for evaluation after she fell down stairs at home and twisted her left ankle. She reports she heard a "crack" sound and is now currently complaining of 10/10 ankle pain. She denies any weakness, numbness or tingling. No other complaints. - Ankle/Foot Description Of Injury: Twisted Past Medical History Reviewed: Historical Data, Nursing Documentation, Vital Signs Vital Signs: Last Vital Signs Temp 98.8 F 12/21/17 17:29 Pulse 106 H 12/21/17 17:29 Resp 19 12/21/17 17:29 BP 139/90 12/21/17 17:29 Pulse Ox 96 12/21/17 17:29 - Medical History PMH: Anxiety, Fibromyalgia, Fractures (finger) Denies: HIV, Chronic Kidney Disease - Surgical History Surgical History: (x1) - Family History Family History: States: Unknown Family Hx - Home Medications Home Medications: Ambulatory Orders Medication Instructions Recorded Vit No.126/Iron/Folic 1 tab PO DAILY MDD 1 04/16/17 [Classic Tablet] Ibuprofen [Motrin Tab] 600 mg PO Q6H PRN #30 tab 05/16/17 Sennosides A and B [Senokot Tab] 17.2 mg PO HS #30 tab 05/16/17 oxyCODONE/Acetaminophen [Percocet 1 tab PO Q6H PRN #20 tab 05/16/17 5/325 mg Tab] Guaifenesin 400 mg PO QID #20 tablet 11/03/17 Ibuprofen [Motrin Tab] 600 mg PO QID PRN #20 tab 11/03/17 traMADol [Ultram] 50 mg PO Q6H PRN #15 tab 12/21/17 - Allergies Allergies/Adverse Reactions: Allergies Allergy/AdvReac Type Severity Reaction Status Date / Time No Known Allergies Allergy Verified 04/16/17 17:14 Review of Systems ROS Statement: Except As Marked, All Systems Reviewed And Found Negative Musculoskeletal: Positive for: Leg Pain (left ankle tendermess) Neurological: Negative for: Weakness, Numbness, Other (tingling) Physical Exam - Reviewed Nursing Documentation Reviewed: Yes Vital Signs Reviewed: Yes - Physical Exam Appears: Positive for: Non-toxic, Uncomfortable Skin: Positive for: Normal Color, Warm, DRY Eye Exam: Positive for: Normal appearance ENT: Positive for: Normal ENT Inspection Cardiovascular/Chest: Positive for: Edema Respiratory: Positive for: Normal Breath Sounds Pulses-Post. Tibialis (L): 2+ Pulses-Post. Tibialis (R): 2+ Back: Positive for: Normal Inspection. Negative for: L CVA Tenderness, R CVA Tenderness Extremity: Positive for: Normal ROM. Negative for: Tenderness - ECG O2 Sat by Pulse Oximetry: 96 (RA) Pulse Ox Interpretation: Normal Medical Decision Making Medical Decision Making: Impression: -- Left ankle Xray -- Tramadol 50 mg PO Percocet given for continued pain in the ER. CT normal. Scribe Attestation: Documented by Wendy Sinclair acting as a scribe for Yanet ESPARZA Provider Attestation: All medical record entries made by the Scribe were at my direction and personally dictated by me. I have reviewed the chart and agree that the record accurately reflects my personal performance of the history, physical exam, medical decision making, and the department course for this patient. I have also personally directed, reviewed, and agree with the discharge instructions and disposition. Disposition - Clinical Impression Clinical Impression: Ankle pain - Patient ED Disposition Is Patient to be Admitted: No Counseled Patient/Family Regarding: Diagnosis, Need For Followup, Rx Given - Disposition Referrals: FAMILY PROVIDER,NO [Primary Care Provider] - Disposition: Routine/Home Disposition Time: 21:16 Condition: GOOD Prescriptions: traMADol [Ultram] 50 mg PO Q6H PRN #15 tab PRN Reason: Pain Instructions: Ankle Sprain Forms: [employer] (Latvian)
--- NOTE | 2017-12-21 18:54 | CP.PCM.CON ---
History of Present Illness - History of Present Illness History of Present Illness: Ortho Consult Note - Dr. Terry 27F PMHx fibromyalgia presents to ED complaining of left foot and ankle. Patient states while she was carrying her baby in a car seat, she lost balance and fell down a few steps; admits to hearing a crack in her foot. Patient unable to bear weight to LLE. Currently, patient complains of severe 10/10 pain to her ankle and the top of her foot. Denies numbness, burning, tingling. Offers no other complaints. Denies N/V/F/D/C/SOB. Review of Systems - Review of Systems All systems: reviewed and no additional remarkable complaints except (as per HPI ) Past Patient History - Infectious Disease Hx of Infectious Diseases: None - Past Medical History & Family History Past Medical History?: Yes - Past Social History Smoking Status: Never Smoked - CARDIAC Hx Cardiac Disorders: No - PULMONARY Hx Respiratory Disorders: No - NEUROLOGICAL Hx Neurological Disorder: No - HEENT Hx HEENT Problems: No - RENAL Hx Chronic Kidney Disease: No - ENDOCRINE/METABOLIC Hx Endocrine Disorders: No - HEMATOLOGICAL/ONCOLOGICAL Hx Human Immunodeficiency Virus (HIV): No - INTEGUMENTARY Hx Dermatological Problems: No - MUSCULOSKELETAL/RHEUMATOLOGICAL Hx Fractures: Yes (finger) - GASTROINTESTINAL Hx Gastrointestinal Disorders: No - GENITOURINARY/GYNECOLOGICAL Hx Genitourinary Disorders: Yes Hx Urinary Tract Infection: Yes (+ MRSA urine 09/2016) - PSYCHIATRIC Hx Anxiety: Yes - SURGICAL HISTORY Other/Comment: Hx epidural, 1 - ANESTHESIA Hx Anesthesia: Yes Hx Anesthesia Reactions: No Hx Malignant Hyperthermia: No Meds Home Medications: Home Medication List Medication Instructions Recorded Confirmed Type traMADol [Ultram] 50 mg PO Q6H PRN #15 tab 12/21/17 Rx Allergies/Adverse Reactions: Allergies Allergy/AdvReac Type Severity Reaction Status Date / Time No Known Allergies Allergy Verified 04/16/17 17:14 Physical Exam - Constitutional Appears: Well, Non-toxic, No Acute Distress - Extremities Exam Extremities exam: Positive for: joint swelling, normal capillary refill, pedal edema, tenderness. Negative for: calf tenderness, full ROM, pedal pulses present Additional comments: LLE focused physical exam VASC: DP and PT pulses nonpalpable 2/2 edema. CFT <3 seconds to all digits. Temperature gradient warm to warm. Non-pitting edema noted to medial/lateral malleoli, dorsum of midfoot. NEURO: Gross sensation intact DERM: No open lesions noted. Ecchymosis noted to dorsum of midfoot ORTHO: Pain on palpation medial malleolus and deltoid ligaments, lateral malleolus, dorsum of midfoot. Pain upon proximal translation of digits 2 and 3. Muscle strength deferred due to chief complaint. - Neurological Exam Neurological exam: Alert, Oriented x3 Results - Vital Signs Recent Vital Signs: Last Vital Signs Temp 98.8 F 12/21/17 17:29 Pulse 106 H 12/21/17 17:29 Resp 19 12/21/17 17:29 BP 139/90 12/21/17 17:29 Pulse Ox 96 12/21/17 17:59 Assessment & Plan - Assessment and Plan (Free Text) Assessment: 27F PMHx fibromyalgia with left ankle sprain secondary to mechanical fall Plan: Patient seen and evaluated Discussed with attending, Dr. Terry Left foot and ankle XR reviewed: negative LLE CT: negative Posterior splint applied to LLE; patient to be NWB LLE with crutches Recommend RICE therapy Advised patient to keep dressing clean/dry/intact until follow up visit Pain control per ED Rx LLE MRI given to patient Patient to follow up with Dr. Terry in office next 12/23/17 Stable for discharge per ortho
[2017-12-21] MEDS ORDERED: Oxycodone/Acetaminophen 5/325 mg Tab PO STA (20:10)
--- NOTE | 2017-12-21 21:15 | CT ---
EXAM: CT Left Lower Extremity Without Intravenous Contrast CLINICAL HISTORY: 27 years old, female; Pain; Ankle and foot; Left; Patient HX: Trauma. Falling/ twisted. Lt ankle/foot pain/ swelling TECHNIQUE: Axial computed tomography images of the left lower extremity without intravenous contrast. All CT scans at this facility use one or more dose reduction techniques, viz.: automated exposure control; ma/kV adjustment per patient size (including targeted exams where dose is matched to indication; i.e. head); or iterative reconstruction technique. Coronal and sagittal reformatted images were created and reviewed. COMPARISON: CR - FOOT LEFT 3 VIEWS ROUTINE 2017-12-21 18:06 FINDINGS: Bones/joints: No acute fracture. No dislocation. No significant joint effusion. Soft tissues: Soft tissue swelling about lateral malleolus. IMPRESSION: 1. No fracture.
--- NOTE | 2017-12-22 08:06 | RAD ---
PROCEDURE: Left Ankle Radiographs. HISTORY: pain, twisted ankle COMPARISON: None FINDINGS: BONES: No acute fracture or destructive bony lesion identified. JOINTS: Normal. No osteoarthritis. Ankle mortise maintained. Talar dome intact SOFT TISSUES: Limited soft tissue edema overlies the lateral malleolus. OTHER FINDINGS: None. IMPRESSION: Limited soft tissue edema overlies the lateral malleolus. No acute fracture, subluxation or dislocation.
--- NOTE | 2017-12-22 08:08 | RAD ---
PROCEDURE: Left Foot Radiographs. HISTORY: lateral pain COMPARISON: None. FINDINGS: BONES: No acute fracture or destructive bony lesion identified. JOINTS: Normal. SOFT TISSUES: Normal. OTHER FINDINGS: None. IMPRESSION: Unremarkable left foot radiographs.
== END 2017-12-21 21:25 | disposition home or self-care (01) ==
LOC: SUPCPDRO 17:27 → H.ER 17:27
DX: S93.402A Sprain of unspecified ligament of left ankle, initial encounter (principal); M79.7 Fibromyalgia; W10.9XXA Fall (on) (from) unspecified stairs and steps, initial encounter

== ENCOUNTER 2017-12-22 18:26 | Emergency (ER) | payer SELFPAY ==
[2017-12-22 18:26] VITALS: BMI 30.6
[2017-12-22 18:41] VITALS: BP 134/81; PULSE 97; RESP 16; TEMP 97.5; O2SAT 100
[2017-12-22] MEDS ORDERED: Oxycodone/Acetaminophen 5/325 mg Tab PO STA (20:13)
--- NOTE | 2017-12-22 20:17 | CP.PCM.CON ---
History of Present Illness - History of Present Illness History of Present Illness: Ortho Consult Note - Dr. Terry 27F PMHx fibromyalgia presents to ED complaining of left foot and ankle. Mother and daughter at bedside. Patient presented to [facility] ED after sustaining a fall down steps. Patient returns today complaining of continued severe pain and inability to move toes. Posterior splint clean/dry/intact. Offers no other complaints. Denies N/V/F/D/C/SOB. Review of Systems - Review of Systems All systems: reviewed and no additional remarkable complaints except (as per HPI ) Past Patient History - Infectious Disease Hx of Infectious Diseases: None - Past Medical History & Family History Past Medical History?: Yes - Past Social History Smoking Status: Never Smoked - CARDIAC Hx Cardiac Disorders: No - PULMONARY Hx Respiratory Disorders: No - NEUROLOGICAL Hx Neurological Disorder: No - HEENT Hx HEENT Problems: No - RENAL Hx Chronic Kidney Disease: No - ENDOCRINE/METABOLIC Hx Endocrine Disorders: No - HEMATOLOGICAL/ONCOLOGICAL Hx Human Immunodeficiency Virus (HIV): No - INTEGUMENTARY Hx Dermatological Problems: No - MUSCULOSKELETAL/RHEUMATOLOGICAL Hx Fractures: Yes (finger) - GASTROINTESTINAL Hx Gastrointestinal Disorders: No - GENITOURINARY/GYNECOLOGICAL Hx Genitourinary Disorders: Yes Hx Urinary Tract Infection: Yes (+ MRSA urine 09/2016) - PSYCHIATRIC Hx Anxiety: Yes Hx Substance Use: No - SURGICAL HISTORY Other/Comment: Hx epidural, 1 - ANESTHESIA Hx Anesthesia: Yes Hx Anesthesia Reactions: No Hx Malignant Hyperthermia: No Meds Home Medications: Home Medication List Medication Instructions Recorded Confirmed Type Ibuprofen [Motrin Tab] 600 mg PO Q8 PRN #60 tab 12/22/17 Rx oxyCODONE/Acetaminophen [Percocet 1 tab PO QID PRN #20 tab 12/22/17 Rx 5/325 mg Tab] Allergies/Adverse Reactions: Allergies Allergy/AdvReac Type Severity Reaction Status Date / Time No Known Allergies Allergy Verified 04/16/17 17:14 - Medications Medications: Current Medications Oxycodone/Acetaminophen (Percocet 5/325 Mg Tab) 2 tab PO STAT STA Stop: 12/22/17 20:14 Physical Exam - Constitutional Appears: Well, Non-toxic, No Acute Distress - Extremities Exam Additional comments: LLE focused physical exam VASC: DP pulse palpable 2/4. PT pulse nonpalpable seondary to edema. CFT <3 seconds to all digits. Temperature gradient warm to warm. Non-pitting edema noted to medial/lateral malleoli, dorsum of midfoot. NEURO: Gross sensation intact DERM: No open lesions noted. Ecchymosis noted to dorsum of midfoot and inferior to lateral malleolus. ORTHO: Pain on palpation medial malleolus and deltoid ligaments, lateral malleolus, dorsum of midfoot. Pain upon proximal translation of digits 2 and 3. Muscle strength deferred due to chief complaint. Unable to actively move digits. Ankle joint ROM decreased with pain noted. - Neurological Exam Neurological exam: Alert, Oriented x3 - Psychiatric Exam Psychiatric exam: Anxious Results - Vital Signs Recent Vital Signs: Last Vital Signs Temp 97.5 F L 12/22/17 18:40 Pulse 97 H 12/22/17 18:40 Resp 16 12/22/17 18:40 BP 134/81 12/22/17 18:40 Pulse Ox 100 12/22/17 18:40 - Labs Result Diagrams: 12/22/17 21:49 12/22/17 21:49 Assessment & Plan - Assessment and Plan (Free Text) Assessment: 27F PMHx fibromyalgia with left ankle sprain secondary to mechanical fall Plan: Patient seen and evaluated Discussed with attending, Dr. Terry (12/21)Left foot and ankle XR reviewed: negative (3/4)LLE CT: negative LLE MRI obtained: (prelim) Muscles: unremarkable. Bone contusion of the anterior talus and complete tear of the anterior talofibular ligament. Posterior splint applied to LLE; patient to be NWB LLE with crutches Recommend RICE therapy Advised patient to keep dressing clean/dry/intact until follow up visit Pain control per ED Patient to follow up with Dr. Terry in office tomorrow 12/23/17 Stable for discharge per ortho
[2017-12-22] MEDS ORDERED: Oxycodone/Acetaminophen 5/325 mg Tab ONE (20:49)
--- NOTE | 2017-12-22 21:24 | ED PDOC ---
Lower Extremity Pain/Injury Time Seen by Provider: 12/22/17 18:48 Chief Complaint (Nursing): Lower Extremity Problem/Injury Chief Complaint (Provider): LEFT ankle pain Additional Complaint(s): Sent by orthopedist for further evaluation of increasing severe ankle pain after sustaining ankle injury yesterday. Ortho: Dr Terry Past Medical History Reviewed: Historical Data, Nursing Documentation, Vital Signs Vital Signs: Last Vital Signs Temp 97.5 F L 12/22/17 18:40 Pulse 97 H 12/22/17 18:40 Resp 16 12/22/17 18:40 BP 134/81 12/22/17 18:40 Pulse Ox 100 12/22/17 18:40 - Medical History PMH: Anxiety, Fibromyalgia, Fractures (finger) Denies: HIV, Chronic Kidney Disease - Surgical History Surgical History: (x1) - Family History Family History: States: Unknown Family Hx - Home Medications Home Medications: Ambulatory Orders Medication Instructions Recorded Vit No.126/Iron/Folic 1 tab PO DAILY MDD 1 04/16/17 [Classic Tablet] Ibuprofen [Motrin Tab] 600 mg PO Q6H PRN #30 tab 05/16/17 Sennosides A and B [Senokot Tab] 17.2 mg PO HS #30 tab 05/16/17 oxyCODONE/Acetaminophen [Percocet 1 tab PO Q6H PRN #20 tab 05/16/17 5/325 mg Tab] Guaifenesin 400 mg PO QID #20 tablet 11/03/17 Ibuprofen [Motrin Tab] 600 mg PO QID PRN #20 tab 11/03/17 traMADol [Ultram] 50 mg PO Q6H PRN #15 tab 12/21/17 Ibuprofen [Motrin Tab] 600 mg PO Q8 PRN #60 tab 12/22/17 oxyCODONE/Acetaminophen [Percocet 1 tab PO QID PRN #20 tab 12/22/17 5/325 mg Tab] - Allergies Allergies/Adverse Reactions: Allergies Allergy/AdvReac Type Severity Reaction Status Date / Time No Known Allergies Allergy Verified 04/16/17 17:14 Review of Systems Musculoskeletal: Positive for: Leg Pain, Foot Pain Skin: Positive for: Bruising Physical Exam - Reviewed Nursing Documentation Reviewed: Yes Vital Signs Reviewed: Yes - Physical Exam Appears: Positive for: Uncomfortable, In Acute Distress Head Exam: Positive for: ATRAUMATIC, NORMOCEPHALIC Extremity: Positive for: Other (LEFT foot/ankle: edema and tenderness lateral malleolus and midfoot with ecchymosis, limited ROM of digits, sensation and perfusion intact.) - Laboratory Results Result Diagrams: 12/22/17 21:49 12/22/17 21:49 - ECG O2 Sat by Pulse Oximetry: 100 - Progress ED Course And Treament: EXAM: MR Left Lower Extremity Without Intravenous Contrast, Ankle EXAM DATE/TIME: 12/22/2017 6:45 PM CLINICAL HISTORY: 27 years old, female; Injury or trauma; Fall; Initial encounter; Sprain or strain; Ankle; Left; Injury date: 12/21/2017; Additional info: Ankle trauma inability to bear weight TECHNIQUE: Multiplanar magnetic resonance images of the left ankle without intravenous contrast. COMPARISON: CR - ANKLE LEFT 3 VIEWS ROUTINE 2017-12-21 18:02 FINDINGS: LIGAMENTS: Anterior talofibular: There is a complete tear of the anterior talofibular ligament. Posterior talofibular: Appears intact. Anterior tibiofibular: Appears intact. Posterior tibiofibular: Unremarkable. Calcaneofibular: Appears intact and. Deltoid: Unremarkable. Spring: Unremarkable. Lisfranc: Unremarkable. TENDONS: Achilles: Unremarkable. Flexor: Unremarkable. Extensor: Unremarkable. Peroneal: Unremarkable. Tibialis anterior: Unremarkable. Tibialis posterior: Unremarkable. Muscles: Unremarkable. Fluid: Moderate ankle joint effusion. Sinus tarsi: Unremarkable. Tarsal tunnel: Unremarkable. Plantar fascia: Unremarkable. Cartilage: Unremarkable. Bones/joints: Edema along the lateral aspect of the ankle joint. Bone contusion of the anterior medial and lateral talus. There is no evidence of acute fracture. IMPRESSION: Bone contusion of the anterior talus and complete tear of the anterior talofibular ligament. Additional findings as described. Thank you for allowing us to participate in the care of your patient. Dictated and Authenticated by: Liza Eng MD 12/22/2017 8:18 PM Eastern Time ([place] & [place]) No emergently significant lab abnormalities. Stable for dc with ortho follow up. Disposition - Clinical Impression Clinical Impression: Ankle sprain Counseled Patient/Family Regarding: Studies Performed, Diagnosis, Need For Followup, Rx Given - Disposition Referrals: Zachary Terry III, MD [Staff Provider] - 12/23/17 Disposition: Routine/Home Disposition Time: 21:23 Condition: STABLE Prescriptions: Ibuprofen [Motrin Tab] 600 mg PO Q8 PRN #60 tab PRN Reason: Pain, Moderate (4-7) oxyCODONE/Acetaminophen [Percocet 5/325 mg Tab] 1 tab PO QID PRN #20 tab PRN Reason: Pain Instructions: Ankle Sprain, How to Use Crutches, Taking Narcotics Safely
[2017-12-22 21:53] LABS: BASO # 0.1 K/uL (0.0-0.2); BASO % 1.2 % (0.0-2.0); EOS # 0.3 K/uL (0.0-0.7); EOS % 3.8 % (0.0-4.0); LYMPH # 3.3 K/uL (1.0-4.3); LYMPH % 45.9 % (20.0-40.0); MEAN CORPUSCULAR HEMOGLOBIN 30.9 pg (27.0-31.0); MEAN CORPUSCULAR HGB CONC 33.4 g/dL (33.0-37.0); MEAN PLATELET VOLUME 8.2 fl (7.2-11.7); MONO # 0.6 K/uL (0.0-0.8); MONO % 7.8 % (0.0-10.0); NEUT % 41.3 % (50.0-75.0); NRBC % 0.3 % (0.0-0.0); RBC 4.3 Mil/uL (3.80-5.20); RED CELL DISTRIBUTION WIDTH 13.1 % (11.5-14.5); WHITE BLOOD COUNT 7.2 K/uL (4.8-10.8)
[2017-12-22 22:03] LABS: HEMOGLOBIN 13.3 g/dL (12.0-16.0); MEAN CELL VOLUME 92.6 fl (81.0-99.0)
[2017-12-22 22:04] LABS: ALB/GLOB RATIO 1.3 (1.0-2.1); ALBUMIN 3.9 g/dL (3.5-5.0); ALT/SGPT 30 U/L (9-52); AST/SGOT 23 U/L (14-36); BLOOD UREA NITROGEN 8 mg/dl (7-17); CALCIUM 8.7 mg/dL (8.4-10.2); GFR AFRICAN-AMERICAN > 60; GFR NON-AFRICAN AMERICAN > 60
--- NOTE | 2017-12-23 12:49 | MRI ---
MRI left ankle History: Ankle trauma. Comparison: None available. Technique: Multi-echo multiplanar sequences were performed through the left ankle without the use of intravenous contrast. Findings: Prominent lateral malleolar soft tissue swelling. Anterior extensor tendons are preserved. Moderate tenosynovitis of the posterior tibial tendon sheath. Mild tenosynovitis of the remainder of the medial flexor tendons. Peroneal tendons are preserved. Anterior and posterior tibiofibular ligaments are preserved. Prominent large partial/near complete tearing of the anterior talofibular ligament. Posterior talofibular ligament is preserved. Prominent reactive bone marrow edema seen at the distal pole of the cuboid bone at its articulation with the bases of the 4th and 5th metatarsal bones demonstrating patchy decreased T1 signal and increased STIR signal suggestive for bone bruising versus subchondral fracturing versus sequela of osteochondral change versus additional etiology. Clinical correlation. Additional signal abnormality within the anterior aspect of the talus at its articulation with the navicular bone at its medial and lateral aspects with decreased T1 signal and increased STIR signal also suggestive for bone bruising versus subchondral osseous injury. Clinical correlation. Mild distal Achilles tendinopathy. Plantar fascia is preserved. Sinus tarsi is preserved. Moderate ankle joint effusion. Degenerative changes noted at the dorsal aspect of the talonavicular joint space. Prominent bone bruising and or subchondral osseous injury within the medial malleolus of the distal tibia. Fraying with increased signal within the deep fibers of the deltoid ligament suggestive for a low grade sprain and or mild partial tearing. Clinical correlation. Increased signal seen within the volar aspect of the 3rd metatarsal bone demonstrating decreased T1 signal which may represent some bruising and or subchondral osseous injury. 1.1 x 0.8 centimeter lobulated fluid intensity signal foci seen at the dorsal aspect of the midfoot best seen on series 5, image 13 which may represent prominent tortuous vessels versus small multiloculated ganglion and or synovial cyst. Ckinical correlation. Some fraying and increased signal seen at the level of the Lisfranc ligament which may represent a moderate grade sprain and or partial tearing. Clinical correlation. Impression: 1. Prominent reactive bone marrow edema seen at the distal pole of the cuboid bone at its articulation with the bases of the 4th and 5th metatarsal bones demonstrating patchy decreased T1 signal and increased STIR signal suggestive for bone bruising versus subchondral fracturing versus sequela of osteochondral change versus additional etiology. Clinical correlation. 2. Additional signal abnormality within the anterior aspect of the talus at its articulation with the navicular bone at its medial and lateral aspects with decreased T1 signal and increased STIR signal also suggestive for bone bruising versus subchondral osseous injury. Clinical correlation. 3. Prominent lateral malleolar soft tissue swelling. 4. Moderate tenosynovitis of the posterior tibial tendon sheath. Mild tenosynovitis of the remainder of the medial flexor tendons. 5. Prominent large partial/near complete tearing of the anterior talofibular ligament. 6. Mild distal Achilles tendinopathy. 7. Moderate ankle joint effusion. 8. Degenerative changes noted at the dorsal aspect of the talonavicular joint space. 9. Prominent bone bruising and or subchondral osseous injury within the medial malleolus of the distal tibia. 10. Fraying with increased signal within the deep fibers of the deltoid ligament suggestive for a low grade sprain and or mild partial tearing. Clinical correlation. 11. Increased signal seen within the volar aspect of the 3rd metatarsal bone demonstrating decreased T1 signal which may represent some bruising and or subchondral osseous injury. 12. 1.1 x 0.8 centimeter lobulated fluid intensity signal foci seen at the dorsal aspect of the midfoot best seen on series 5, image 13 which may represent prominent tortuous vessels versus small multiloculated ganglion and or synovial cyst. Ckinical correlation. 13. Some fraying and increased signal seen at the level of the Lisfranc ligament which may represent a moderate grade sprain and or partial tearing. Clinical correlation.
== END 2017-12-22 22:54 | disposition home or self-care (01) ==
LOC: H.ER 18:26
DX: S93.402D Sprain of unspecified ligament of left ankle, subsequent encounter (principal); W10.9XXD Fall (on) (from) unspecified stairs and steps, subsequent encounter

== ENCOUNTER 2018-01-05 17:29 | Emergency (ER) | payer MEDICAID ==
[2018-01-05 17:29] VITALS: BMI 30.6
[2018-01-05 17:43] VITALS: RESP 18
[2018-01-05 18:23] VITALS: BP 122/76; PULSE 98; TEMP 97.6; O2SAT 100
--- NOTE | 2018-01-05 18:27 | ED PDOC ---
HPI: General Adult Time Seen by Provider: 01/05/18 18:02 Chief Complaint (Nursing): Abnormal Skin Integrity History Per: Patient Additional Complaint(s): Pt. states 2 days ago she developed a "pimple" on the lower lip which she "popped." Since popping mass it has progressively been increasing size. Denies fever, antipyretic use, blunt trauma, rash, throat swelling, SOB. Past Medical History Reviewed: Historical Data, Nursing Documentation, Vital Signs Vital Signs: Last Vital Signs Temp 97.6 F 01/05/18 18:22 Pulse 98 H 01/05/18 18:22 Resp 18 01/05/18 18:22 BP 122/76 01/05/18 18:22 Pulse Ox 100 01/05/18 18:22 - Medical History PMH: Anxiety, Fibromyalgia, Fractures (finger) Denies: HIV, Chronic Kidney Disease - Surgical History Surgical History: (x1) - Family History Family History: States: No Known Family Hx - Home Medications Home Medications: Ambulatory Orders Medication Instructions Recorded Vit No.126/Iron/Folic 1 tab PO DAILY MDD 1 04/16/17 [Classic Tablet] Ibuprofen [Motrin Tab] 600 mg PO Q6H PRN #30 tab 05/16/17 Sennosides A and B [Senokot Tab] 17.2 mg PO HS #30 tab 05/16/17 oxyCODONE/Acetaminophen [Percocet 1 tab PO Q6H PRN #20 tab 05/16/17 5/325 mg Tab] Guaifenesin 400 mg PO QID #20 tablet 11/03/17 Ibuprofen [Motrin Tab] 600 mg PO QID PRN #20 tab 11/03/17 traMADol [Ultram] 50 mg PO Q6H PRN #15 tab 12/21/17 Ibuprofen [Motrin Tab] 600 mg PO Q8 PRN #60 tab 12/22/17 oxyCODONE/Acetaminophen [Percocet 1 tab PO QID PRN #20 tab 12/22/17 5/325 mg Tab] Amoxicillin/Clavulanate [Augmentin 1 tab PO BID #20 tab 01/05/18 500 MG-125 MG] - Allergies Allergies/Adverse Reactions: Allergies Allergy/AdvReac Type Severity Reaction Status Date / Time No Known Allergies Allergy Verified 01/05/18 17:39 Review of Systems ROS Statement: Except As Marked, All Systems Reviewed And Found Negative Physical Exam - Physical Exam Appears: Positive for: Well, Non-toxic, No Acute Distress Skin: Positive for: Normal Color, Warm. Negative for: Rash Eye Exam: Positive for: Normal appearance ENT: Positive for: Other (L lower lip with mild swelling and with burst small pimple like mass without discharge or surrounding erythema) Neurologic/Psych: Positive for: Alert, Oriented - ECG O2 Sat by Pulse Oximetry: 100 - Progress ED Course And Treament: Repeat HR: 98 Pt. advised to do frequent oral temp checks and if temp is >100.4 pt. is to return to ED immediately or if swelling worsens. Instructed to f/u with [facility] in 2 days for wound check. Disposition - Clinical Impression Clinical Impression: Cellulitis of lip - Patient ED Disposition Is Patient to be Admitted: No - Disposition Referrals: [facility] [Outside] [facility] [Outside] Disposition: Routine/Home Disposition Time: 18:30 Condition: STABLE Additional Instructions: Apply warm compresses to area. Follow up with [facility] in 2 days for wound check. Return to ED immediately if swelling worsens or if fever develops. Prescriptions: Amoxicillin/Clavulanate [Augmentin 500 MG-125 MG] 1 tab PO BID #20 tab Instructions: Cellulitis (Skin Infection), Adult (DC) Forms: [employer] (Sinhala) Print Language: CYMRAES
== END 2018-01-05 19:00 | disposition home or self-care (01) ==
LOC: H.ER 17:29
DX: L03.211 Cellulitis of face (principal); F41.9 Anxiety disorder, unspecified; M79.7 Fibromyalgia

== ENCOUNTER 2018-08-25 20:55 | Emergency (ER) | payer SELFPAY ==
[2018-08-25 20:55] VITALS: BMI 30.6
[2018-08-25 21:09] VITALS: RESP 18
[2018-08-25] MEDS ORDERED: Sodium Chloride 0.9% 1,000 ML IV STA (22:34)
--- NOTE | 2018-08-25 22:43 | ED PDOC ---
HPI: Female Pain Time Seen by Provider: 08/25/18 21:00 Chief Complaint (Nursing): Female Genitourinary Chief Complaint (Provider): Female Genitourinary History Per: Patient History/Exam Limitations: no limitations Onset/Duration Of Symptoms: Days (x2) Current Symptoms Are (Timing): Still Present Additional Complaint(s): 28 y/o female who is A2 (2 , 2 kids) presents to the ED complaining of vaginal bleeding for x2 days. Patient recently had an in [place] x3 days ago on Friday (08/22/18.) Since then she has been having heavy clots and bleeding for x2 days. Patient reports that since yesterday she has used 30 pads. She reports associated cramping. Denies fever or vomiting. Abnormal Vaginal Bleeding: Yes : 4 Para: 2 Miscarriage: 2 Past Medical History Reviewed: Historical Data, Nursing Documentation, Vital Signs Vital Signs: Last Vital Signs Temp 99.4 F 08/25/18 21:06 Pulse 94 H 08/25/18 21:06 Resp 18 08/25/18 21:06 BP 124/88 08/25/18 21:06 Pulse Ox 100 08/25/18 21:06 - Medical History PMH: Anxiety, Fibromyalgia, Fractures (finger) Denies: HIV, Chronic Kidney Disease - Surgical History Surgical History: (x1) - Family History Family History: States: Unknown Family Hx - Social History Current smoker - smoking cessation education provided: No Ex-Smoker (has not smoked in the last 12 months): No Alcohol: Occasional Drugs: Denies - Home Medications Home Medications: Ambulatory Orders Medication Instructions Recorded RX: Vit No.126/Iron/Folic 1 tab PO DAILY MDD 1 04/16/17 [Classic Tablet] RX: Ibuprofen [Motrin Tab] 600 mg PO Q6H PRN #30 tab 05/16/17 RX: Sennosides A and B [Senokot 17.2 mg PO HS #30 tab 05/16/17 Tab] RX: oxyCODONE/Acetaminophen 1 tab PO Q6H PRN #20 tab 05/16/17 [Percocet 5/325 mg Tab] RX: Guaifenesin 400 mg PO QID #20 tablet 11/03/17 RX: Ibuprofen [Motrin Tab] 600 mg PO QID PRN #20 tab 11/03/17 RX: traMADol [Ultram] 50 mg PO Q6H PRN #15 tab 12/21/17 RX: Ibuprofen [Motrin Tab] 600 mg PO Q8 PRN #60 tab 12/22/17 oxyCODONE/Acetaminophen [Percocet 1 tab PO QID PRN #20 tab 12/22/17 5/325 mg Tab] Amoxicillin/Clavulanate [Augmentin 1 tab PO BID #20 tab 01/05/18 500 MG-125 MG] - Allergies Allergies/Adverse Reactions: Allergies Allergy/AdvReac Type Severity Reaction Status Date / Time No Known Allergies Allergy Verified 08/25/18 21:06 Review of Systems ROS Statement: Except As Marked, All Systems Reviewed And Found Negative Constitutional: Negative for: Fever Gastrointestinal: Positive for: Abdominal Pain (cramping). Negative for: Vomiting Genitourinary Female: Positive for: Vaginal Bleeding Physical Exam - Reviewed Nursing Documentation Reviewed: Yes Vital Signs Reviewed: Yes - Physical Exam Appears: Positive for: Well, Non-toxic, No Acute Distress Head Exam: Positive for: ATRAUMATIC, NORMAL INSPECTION, NORMOCEPHALIC Skin: Positive for: Normal Color, Warm, DRY Eye Exam: Positive for: EOMI, Normal appearance, PERRL ENT: Positive for: Normal ENT Inspection Neck: Positive for: Normal Cardiovascular/Chest: Positive for: Regular Rate, Rhythm. Negative for: Murmur Respiratory: Positive for: Normal Breath Sounds. Negative for: Respiratory Distress Gastrointestinal/Abdominal: Positive for: Bowel Sounds, Soft, Tenderness (slight suprapubic tenderness), Other Pelvic Exam: Positive for: Blood (no clot found, there is blood from os), Other (vessel traffic officer seedtag) Extremity: Positive for: Normal ROM. Negative for: Pedal Edema, Deformity Neurologic/Psych: Positive for: Alert, Oriented. Negative for: Motor/Sensory Deficits - Laboratory Results Result Diagrams: 08/26/18 02:30 08/25/18 22:45 - ECG O2 Sat by Pulse Oximetry: 100 (RA) Pulse Ox Interpretation: Normal Medical Decision Making Medical Decision Making: Time: 22:34 Initial Impression: Vaginal bleeding s/p Initial Plan: * Type and Screen * Beta HCG * CMP * CBC w/ diff * Morphine * IV Fluids * US Pelvis/Transvag Time: 0138 Placed call to TERMITE TREATER HELPER for patient bleeding vaginally. Dr. Olmstead cone tender aware of patient and advised to give methergine 0.2mg and rpt cbc and then discharge patient. he discussed w patient the plan. cbc stable, pt is anemic but stable pt will follow up w outpt farm machinery assembler Scribe Attestation: Documented by Lio Denise and Jose Huston acting as scribes for Jude Pollard MD. Provider Scribe Attestation: All medical record entries made by the Scribe were at my direction and personally dictated by me. I have reviewed the chart and agree that the record accurately reflects my personal performance of the history, physical exam, medical decision making, and the department course for this patient. I have also personally directed, reviewed, and agree with the discharge instructions and disposition. Disposition - Clinical Impression Clinical Impression: Female genitourinary symptoms - Patient ED Disposition Is Patient to be Admitted: No Counseled Patient/Family Regarding: Studies Performed, Diagnosis, Need For Followup - Disposition Disposition: Routine/Home Disposition Time: 03:00 Condition: IMPROVED Additional Instructions: follow up with hot car charger (dr maryellen branch) within 2 days return to the ED with any worsening or concerning symptoms Instructions: Bleeding Precautions Forms: [email or web address] (Nigerian)
[2018-08-25 23:02] LABS: BASO # 0.1 K/uL (0.0-0.2); BASO % 0.7 % (0.0-2.0); EOS # 0.3 K/uL (0.0-0.7); EOS % 3.2 % (0.0-4.0); HEMOGLOBIN 10.9 g/dL (12.0-16.0); LYMPH # 2.7 K/uL (1.0-4.3); LYMPH % 28.1 % (20.0-40.0); MEAN CELL VOLUME 92.2 fl (81.0-99.0); MEAN CORPUSCULAR HEMOGLOBIN 30.9 pg (27.0-31.0); MEAN CORPUSCULAR HGB CONC 33.5 g/dL (33.0-37.0); MEAN PLATELET VOLUME 8.1 fl (7.2-11.7); MONO # 0.7 K/uL (0.0-0.8); MONO % 7.1 % (0.0-10.0); NEUT # 5.8 K/uL (1.8-7.0); NEUT % 60.9 % (50.0-75.0); NRBC % 0.1 % (0.0-0.0); RBC 3.54 Mil/uL (3.80-5.20); RED CELL DISTRIBUTION WIDTH 12.9 % (11.5-14.5); WHITE BLOOD COUNT 9.5 K/uL (4.8-10.8)
[2018-08-25 23:13] LABS: ALB/GLOB RATIO 1.2 (1.0-2.1); ALBUMIN 3.8 g/dL (3.5-5.0); ALT/SGPT 20 U/L (9-52); AST/SGOT 15 U/L (14-36); BLOOD UREA NITROGEN 4 mg/dl (7-17); CALCIUM 8.6 mg/dL (8.4-10.2); GFR NON-AFRICAN AMERICAN > 60
[2018-08-26] MEDS ORDERED: Oxycodone/Acetaminophen 5/325 mg Tab PO ONE (00:48)
--- NOTE | 2018-08-26 02:28 | CP.PCM.CON ---
<Batool Jacome - Last Filed: 08/26/18 03:14> History of Present Illness - History of Present Illness History of Present Illness: Patient seen and examined with Dr. Olmstead. Batool [place] , PGY-1 OBGYN team was consulted to see Ms. Guido, 28 y/o , LMP 06/2018, who presented to ED with c/o bright red, heavy vaginal bleeding following by clotting that started 08/22/2018 s/p @ 11wks performed on 08/22. She endorses nausea since this AM & having to use >20 pads yesterday, but denied any vomiting, lightheadedness, dizziness, chest pain, shortness of breath. She is a patient of Dr. Shah. OBGYNhx: primary [id number]; in 2012; repeat -05/13/2017; HSV II IgG positive, hx of trich PMH: anemia, fibromyalgia, anxiety Meds: none Allergies: NKA Surghx: appendectomy-12/16/2016, x 2 (2009, 2016) Sochx: Denies tobacco, eToH or elicit drug use ROS: all 12 points reviewed unless otherwise noted in HPI VS: 99.3F, P-94bpm BP: 124.88, RR-16 Physical Exam: Gen: Patient laying in supine position accompanied by mother & boyfriend Cardio: s1s2, no murmurs Lungs: Good resp effort Abd: nontender, benign Pelvic: Cervix closed, scant blood visualized, no active bleeding A/P: 28 y/o s/p 08/22/2018 with c/o vaginal bleeding. -Hemodynamically stable. -Complete with no signs of active bleeding & scant blood. -Ultrasound showed small hematoma. 1. May consider medications if bleeding continues. 2. FU with Dr. Shah w/i 1 wk. Past Patient History - Infectious Disease Hx of Infectious Diseases: None - Past Medical History & Family History Past Medical History?: Yes - Past Social History Chewing Tobacco Use: No Cigar Use: No Alcohol: None Drugs: Denies - CARDIAC Hx Cardiac Disorders: No - PULMONARY Hx Respiratory Disorders: No - NEUROLOGICAL Hx Neurological Disorder: No - HEENT Hx HEENT Problems: No - RENAL Hx Chronic Kidney Disease: No - ENDOCRINE/METABOLIC Hx Endocrine Disorders: No - HEMATOLOGICAL/ONCOLOGICAL Hx Human Immunodeficiency Virus (HIV): No - INTEGUMENTARY Hx Dermatological Problems: No - MUSCULOSKELETAL/RHEUMATOLOGICAL Hx Fractures: Yes (finger) - GASTROINTESTINAL Hx Gastrointestinal Disorders: No - GENITOURINARY/GYNECOLOGICAL Hx Genitourinary Disorders: Yes Hx Urinary Tract Infection: Yes - PSYCHIATRIC Hx Anxiety: Yes - SURGICAL HISTORY Other/Comment: Hx epidural, 1 - ANESTHESIA Hx Anesthesia: Yes Hx Anesthesia Reactions: No Hx Malignant Hyperthermia: No Meds Allergies/Adverse Reactions: Allergies Allergy/AdvReac Type Severity Reaction Status Date / Time No Known Allergies Allergy Verified 08/25/18 21:06 Physical Exam - Constitutional Appears: Non-toxic, No Acute Distress - Head Exam Head Exam: ATRAUMATIC - Cardiovascular Exam Cardiovascular Exam: RRR, +S1, +S2 - GI/Abdominal Exam GI & Abdominal Exam: Soft. absent: Tenderness - Exam Additional comments: cervix closed, scant blood, no active bleeding - Neurological Exam Neurological exam: Alert, Oriented x3 - Psychiatric Exam Psychiatric exam: Normal Affect, Normal Mood - Skin Skin Exam: Dry, Intact Results - Vital Signs Recent Vital Signs: Last Vital Signs Temp 99.4 F 08/25/18 21:06 Pulse 94 H 08/25/18 21:06 Resp 18 08/25/18 21:06 BP 124/88 08/25/18 21:06 Pulse Ox 100 08/26/18 02:13 - Labs Result Diagrams: 08/26/18 02:30 08/25/18 22:45 Labs: Laboratory Results - last 24 hr 08/25/18 08/25/18 08/25/18 22:37 22:45 22:45 WBC 9.5 RBC 3.54 L Hgb 10.9 L D Hct 32.6 L MCV 92.2 MCH 30.9 MCHC 33.5 RDW 12.9 Plt Count 212 MPV 8.1 Neut % (Auto) 60.9 Lymph % (Auto) 28.1 Pope % (Auto) 7.1 Eos % (Auto) 3.2 Baso % (Auto) 0.7 Neut # (Auto) 5.8 Lymph # (Auto) 2.7 Pope # (Auto) 0.7 Eos # (Auto) 0.3 Baso # (Auto) 0.1 Sodium 138 Potassium 4.0 Chloride 107 Carbon Dioxide 22 Anion Gap 13 BUN 4 L Creatinine 0.5 L Est GFR ( Amer) > 60 Est GFR (Non-Af Amer) > 60 Random Glucose 95 Calcium 8.6 Total Bilirubin 0.1 L AST 15 ALT 20 Alkaline Phosphatase 54 Total Protein 6.9 Albumin 3.8 Globulin 3.1 Albumin/Globulin Ratio 1.2 Beta HCG, Quant Blood Type B POSITIVE Antibody Screen Negative BBK History Checked Patient has bt 08/25/18 22:45 WBC RBC Hgb Hct MCV MCH MCHC RDW Plt Count MPV Neut % (Auto) Lymph % (Auto) Pope % (Auto) Eos % (Auto) Baso % (Auto) Neut # (Auto) Lymph # (Auto) Pope # (Auto) Eos # (Auto) Baso # (Auto) Sodium Potassium Chloride Carbon Dioxide Anion Gap BUN Creatinine Est GFR ( Amer) Est GFR (Non-Af Amer) Random Glucose Calcium Total Bilirubin AST ALT Alkaline Phosphatase Total Protein Albumin Globulin Albumin/Globulin Ratio Beta HCG, Quant 1959.90 Blood Type Antibody Screen BBK History Checked Assessment & Plan - Date & Time Date: 08/26/18 Time: 02:00 <Devendra Olmstead - Last Filed: 08/26/18 08:19> Results - Vital Signs Recent Vital Signs: Last Vital Signs Temp 98.9 F 08/26/18 03:06 Pulse 88 08/26/18 03:06 Resp 18 08/26/18 03:06 BP 118/84 08/26/18 03:06 Pulse Ox 100 08/26/18 04:47 - Labs Result Diagrams: 08/26/18 02:30 08/25/18 22:45 Labs: Laboratory Results - last 24 hr 08/25/18 08/25/18 08/25/18 22:37 22:45 22:45 WBC 9.5 RBC 3.54 L Hgb 10.9 L D Hct 32.6 L MCV 92.2 MCH 30.9 MCHC 33.5 RDW 12.9 Plt Count 212 MPV 8.1 Neut % (Auto) 60.9 Lymph % (Auto) 28.1 Pope % (Auto) 7.1 Eos % (Auto) 3.2 Baso % (Auto) 0.7 Neut # (Auto) 5.8 Lymph # (Auto) 2.7 Pope # (Auto) 0.7 Eos # (Auto) 0.3 Baso # (Auto) 0.1 Sodium 138 Potassium 4.0 Chloride 107 Carbon Dioxide 22 Anion Gap 13 BUN 4 L Creatinine 0.5 L Est GFR ( Amer) > 60 Est GFR (Non-Af Amer) > 60 Random Glucose 95 Calcium 8.6 Total Bilirubin 0.1 L AST 15 ALT 20 Alkaline Phosphatase 54 Total Protein 6.9 Albumin 3.8 Globulin 3.1 Albumin/Globulin Ratio 1.2 Beta HCG, Quant Blood Type B POSITIVE Antibody Screen Negative BBK History Checked Patient has bt 08/25/18 08/26/18 22:45 02:30 WBC 9.1 RBC 3.32 L Hgb 10.5 L Hct 31.1 L MCV 93.5 MCH 31.6 H MCHC 33.8 RDW 13.1 Plt Count 190 MPV 8.3 Neut % (Auto) 52.0 Lymph % (Auto) 36.8 Pope % (Auto) 7.3 Eos % (Auto) 3.1 Baso % (Auto) 0.8 Neut # (Auto) 4.7 Lymph # (Auto) 3.3 Pope # (Auto) 0.7 Eos # (Auto) 0.3 Baso # (Auto) 0.1 Sodium Potassium Chloride Carbon Dioxide Anion Gap BUN Creatinine Est GFR ( Amer) Est GFR (Non-Af Amer) Random Glucose Calcium Total Bilirubin AST ALT Alkaline Phosphatase Total Protein Albumin Globulin Albumin/Globulin Ratio Beta HCG, Quant 1959.90 Blood Type Antibody Screen BBK History Checked Assessment & Plan - Assessment and Plan (Free Text) Assessment: S/P TOP; anemia - currently stable Plan: Pt seen with PGY1. As per Hx VB. Currently no pain. In NAD Abd soft NT Pelvic : scant blood clot noted Cx closed no active VB form CX. Uterus 6-7w size; sono small amt 2cm hematoma (verbal report). S/P TOP/Complete Ab/anemia: May give Cytotec intravaginally, but currently no VB; follow up in 2-3d with [facility]. Advised if more VB or pain to go to ER
[2018-08-26 02:43] LABS: BASO # 0.1 K/uL (0.0-0.2); BASO % 0.8 % (0.0-2.0); EOS # 0.3 K/uL (0.0-0.7); EOS % 3.1 % (0.0-4.0); HEMOGLOBIN 10.5 g/dL (12.0-16.0); LYMPH # 3.3 K/uL (1.0-4.3); LYMPH % 36.8 % (20.0-40.0); MEAN CELL VOLUME 93.5 fl (81.0-99.0); MEAN CORPUSCULAR HEMOGLOBIN 31.6 pg (27.0-31.0); MEAN CORPUSCULAR HGB CONC 33.8 g/dL (33.0-37.0); MEAN PLATELET VOLUME 8.3 fl (7.2-11.7); MONO # 0.7 K/uL (0.0-0.8); MONO % 7.3 % (0.0-10.0); NEUT # 4.7 K/uL (1.8-7.0); NRBC % 0.1 % (0.0-0.0); RBC 3.32 Mil/uL (3.80-5.20); RED CELL DISTRIBUTION WIDTH 13.1 % (11.5-14.5); WHITE BLOOD COUNT 9.1 K/uL (4.8-10.8)
[2018-08-26 03:08] VITALS: BP 118/84; PULSE 88; TEMP 98.9
[2018-08-26 04:41] VITALS: O2SAT 100
--- NOTE | 2018-08-26 13:44 | US ---
Date of service: 08/25/2018 HISTORY: post TOP bleeding COMPARISON: OB limited/biophysical profile performed 04/19/17 TECHNIQUE: Real-time transabdominal pelvic ultrasound was performed. In addition a transvaginal pelvic ultrasound was necessary to better depict pelvic anatomy. FINDINGS: UTERUS: Measures 12.3 x 6.3 x 7.2 cm. Anteverted. Heterogeneous avascular 2.0 x 1.7 x 3.1 cm region involving the lower uterine segment near the cervix of unclear etiology, hematoma considered a possibility. ENDOMETRIUM: Measures 1.3 cm in diameter. CERVIX: No cervical abnormality identified. RIGHT OVARY: Measures 3.5 x 2.3 x 2.9 cm. Blood flow is demonstrated. LEFT OVARY: Not visualized. FREE FLUID: Small free fluid noted. OTHER FINDINGS: None. IMPRESSION: Heterogeneous avascular 2.0 x 1.7 x 3.1 cm region involving the lower uterine segment near the cervix of unclear etiology, hematoma considered a possibility. Correlate clinically and short-term follow-up ultrasound recommended. Small pelvic free fluid. The left ovary is not visualized. Preliminary impression was provided by [employer].
== END 2018-08-26 03:08 | disposition home or self-care (01) ==
LOC: H.ER 20:55
DX: N93.9 Abnormal uterine and vaginal bleeding, unspecified (principal); D64.9 Anemia, unspecified
CPT/HCPCS: 76830; 76856; 80053; 84702; 85025; 86850; 86900; 96372; 99283; J2210; J2270; J7030

== ENCOUNTER 2018-10-15 15:49 | Emergency (ER) | payer SELFPAY ==
[2018-10-15 15:49] VITALS: BMI 30.6
[2018-10-15 16:19] VITALS: BP 113/79; PULSE 75; RESP 16; TEMP 98.4; O2SAT 98
--- NOTE | 2018-10-15 19:30 | ED PDOC ---
History of Present Illness History of Present Illness: 28 year old female presents to the ED with nasal congestion, fever, body aches and a sore throat for two days. Patient offers no other complaints at this time. PMD: Dr. Fede Moser HPI: Influenza Time Seen by Provider: 10/15/18 17:01 Chief Complaint: ENT Problem Chief Complaint (Provider): ENT Problem History Per: Patient Exam Limitations: no limitations Onset/Duration Of Symptoms: Days (x 2) Symptoms include: fever, bodyaches, sore throat, nasal congestion Past Medical History Reviewed: Historical Data, Nursing Documentation, Vital Signs Vital Signs: Last Vital Signs Temp 98.4 F 10/15/18 16:16 Pulse 75 10/15/18 16:16 Resp 16 10/15/18 16:16 BP 113/79 10/15/18 16:16 Pulse Ox 98 10/15/18 16:16 - Medical History PMH: Anxiety, Fibromyalgia, Fractures (finger) Denies: HIV, Chronic Kidney Disease - Surgical History Surgical History: (x1) - Family History Family History: States: Unknown Family Hx - Home Medications Home Medications: Ambulatory Orders Medication Instructions Recorded RX: Vit No.126/Iron/Folic 1 tab PO DAILY MDD 1 04/16/17 [Classic Tablet] RX: Ibuprofen [Motrin Tab] 600 mg PO Q6H PRN #30 tab 05/16/17 RX: Sennosides A and B [Senokot 17.2 mg PO HS #30 tab 05/16/17 Tab] RX: oxyCODONE/Acetaminophen 1 tab PO Q6H PRN #20 tab 05/16/17 [Percocet 5/325 mg Tab] RX: Guaifenesin 400 mg PO QID #20 tablet 11/03/17 RX: Ibuprofen [Motrin Tab] 600 mg PO QID PRN #20 tab 11/03/17 RX: traMADol [Ultram] 50 mg PO Q6H PRN #15 tab 12/21/17 RX: Ibuprofen [Motrin Tab] 600 mg PO Q8 PRN #60 tab 12/22/17 oxyCODONE/Acetaminophen [Percocet 1 tab PO QID PRN #20 tab 12/22/17 5/325 mg Tab] Amoxicillin/Clavulanate [Augmentin 1 tab PO BID #20 tab 01/05/18 500 MG-125 MG] RX: Ibuprofen [Motrin Tab] 600 mg PO TID PRN #15 tab 10/15/18 - Allergies Allergies/Adverse Reactions: Allergies Allergy/AdvReac Type Severity Reaction Status Date / Time No Known Allergies Allergy Verified 10/15/18 16:16 Review of Systems ROS Statement: Except As Marked, All Systems Reviewed And Found Negative Constitutional: Positive for: Fever, Other (body aches) ENT: Positive for: Nose Congestion, Throat Pain Physical Exam - Reviewed Nursing Documentation Reviewed: Yes Vital Signs Reviewed: Yes - Physical Exam Appears: Positive for: No Acute Distress Head Exam: Positive for: ATRAUMATIC, NORMAL INSPECTION, NORMOCEPHALIC Skin: Positive for: Normal Color, Warm, Dry Eye Exam: Positive for: EOMI, Normal appearance, PERRL ENT: Positive for: Nasal Congestion, Pharyngeal Erythema Cardiovascular/Chest: Positive for: Regular Rate, Rhythm. Negative for: Murmur Respiratory: Positive for: Normal Breath Sounds. Negative for: Respiratory Distress Neurologic/Psych: Positive for: Alert, Oriented. Negative for: Motor/Sensory Deficits Medical Decision Making Medical Decision Makin;25 Initial Plan: --Throat cx --urine preg --Motrin 600 mg PO --Rapid strep --Influenza AB Patient is negative for both strep and influenza. Diagnoses are viral illness and tonsillitis. Stable for discharge. pt. well appearing, nontoxic, tolerating po. ---- Scribe Attestation: Documented by Cecilia Ramires , acting as a scribe for Sherin Atkins. Provider Scribe Attestation: All medical record entries made by the Scribe were at my direction and personally dictated by me. I have reviewed the chart and agree that the record accurately reflects my personal performance of the history, physical exam, medical decision making, and the department course for this patient. I have also personally directed, reviewed, and agree with the discharge instructions and disposition. - ECG O2 Sat by Pulse Oximetry: 98 (RA) Pulse Ox Interpretation: Normal Disposition - Clinical Impression Clinical Impression: Tonsillitis, Viral illness - Patient ED Disposition Is Patient to be Admitted: No - Disposition Disposition: Routine/Home Disposition Time: 18:45 Condition: STABLE Additional Instructions: motrin or tylenol as needed for fever/bodyaches. Prescriptions: RX: Ibuprofen [Motrin Tab] 600 mg PO TID PRN #15 tab PRN Reason: Fever >100.4 F Instructions: Viral Pharyngitis, Flu, Flu, Adult (DC), Viral Pharyngitis (DC) Forms: [facility] (Polish), [facility] ED School/Work Excuse
== END 2018-10-15 19:09 | disposition home or self-care (01) ==
LOC: H.ER 15:49
DX: J03.90 Acute tonsillitis, unspecified (principal); B34.9 Viral infection, unspecified; F41.9 Anxiety disorder, unspecified; M79.7 Fibromyalgia